=== PATIENT | female | born 1975 | race Caucasian/White ===

== ENCOUNTER → 2019-04-25 09:41 | Outpatient (CLI) | payer OTHER, SELFPAY ==
[2019-04-25 12:28] LABS: Hematocrit 45.3 % (37-47); Hemoglobin 14.8 g/dL (12.0-15.0); Mean Corp Hgb Conc 32.7 g/dL (32-36); Mean Corpuscular Hgb 33.3 pg (27.0-32.0); Mean Corpuscular Volume 101.8 fL (81-99); Mean Platelet Vol. 9.5 fl (6.2-12.0); Platelet Count 251 K/mm3 (150-450); RBC Distribution Width CV 12.5 % (11.6-14.6); RBC Distribution Width SD 47.7 fl (35.1-43.9); Red Blood Count 4.45 M/mm3 (4.2-5.4); White Blood Count 8.7 K/mm3 (4.4-11.0)
[2019-04-25 13:04] LABS: Vitamin D,25 Hydroxy 71.4 ng/mL (29.95-100.01)
[2019-04-25 13:09] LABS: AST(SGOT) 13 U/L (15-37); Alanine Aminotransfer ALT/SGPT 25 U/L (13-56); Albumin, Serum 3.9 g/dL (3.2-5.0); Alkaline Phosphatase 67 U/L (45-117); BUN 13 mg/dL (7-18); Bilirubin, Direct 0.14 mg/dL (0.00-0.30); Creatinine, Serum 0.82 mg/dL (0.55-1.02); EST Glomerular Filtration Rate 80 mL/min (>60); Est Glom Filt Rate - Afr Amer 97 mL/min (>60); Free T3 2.5 pg/mL (2.18-3.98); Globulin 3.5 g/dL (2.2-4.2); Protein, Total 7.4 g/dL (6.4-8.2); T4 Free Direct 0.82 ng/dL (0.76-1.46); Thyroid Stim Hormone (TSH) 1.23 uIU/mL (0.358-3.74)
== END ==
DX: E03.9 Hypothyroidism, unspecified (principal); K51.30 Ulcerative (chronic) rectosigmoiditis without complications
CPT/HCPCS: 36415; 80076; 82306; 82565; 84439; 84443; 84481; 84520; 85027

== ENCOUNTER 2019-05-10 11:30 | Outpatient (RCR) | payer SELFPAY ==
--- NOTE | 2019-04-25 13:20 | HP.PTEVAL ---
Patient's Visit Information KYLEE NAVARRO is a 43 year old F referred to Physical Therapy by Self Referred with a diagnosis of .. Date of Evaluation: 04/25/19 Physical Therapist: Janice Mccormick, PT, Cert MDT - Visit Plan Frequency: 1x/Week Duration: 1 Week Plan: POSTURE CORRECTION/STRENGTHENING, INSTRUCTION IN APPROPRIATE BODY MECHANICS AND ACTIVITY MODIFICATIONS. MEHUL UE ROM, STRETCHING AND STRENGTHENING. HEP INSTRUCTION. SPECIFICALLY CONSIDER HEP INST FOR SELF STRETCHING OF SCALENES, UPPER TRAPS, LEVATOR SCAPULAE, PEC VIVI AND PEC MINOR. CONSIDER STRENGTHENING OF DEEP NECK FLEXORS, MIDDLE TRAP, LOWER TRAP AND SERRATUS TAKING CURRENT EX PROGRAM INTO CONSIDERATION. CONSIDER DEEP NECK FLEXOR LIFT, PRONE W'S, UE WALL SLIDES, PRONE ROWS, AND UE BAND WALL WALKS. 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 SIT STAND DESK. NOT STRICKLY SITTING. SOME LIFTING, BENDING, TWISTING. Disability: NO. Present symptoms: HEADACHES, TIGHTNESS ACROSS NECK, RIGHT FOREARM TIGHTNESS. MEHUL UE DISCOMFORT RIGHT > LEFT. UE SX'S COME AND GO. NUMBNESS DIGITS 2 AND 3 RIGHT HAND (CONSTANT) NO LEFT HAND SX'S. Present since: SEPTEMBER 2015. Pain Scale: Worst - 2/10 (HEAD AND NECK) Least - 0/10. Currently: 0/10. Commenced as a result of: NO APPARENT REASON. Symptoms at onset: RIGHT NECK/UE SEVERE PAIN. Worse: WORKING AT A DESK, POOR POSTURE, SOMETIMES LIFTING, SOMETIMES WORKOUTS. Better: HEATING PAD, MVMT, MUSCLE RELAXER NEEDED. Disturbed sleep: NO. Previous history/Previous treatment: PHYSICAL THERAPY - TRACTION - NE, MOE PT. JO - NE. DRY NEEDLING ([facility] PT) - ON GOING - DOESN'T RESOLVE IT BUT IT HELPS RELIEVE. ORTHO CONSULT- SURGERY RECOMMENDED BUT DECLINED. MULTIPLE PT'S FOR EXERCISE, LASER AND OTHER. DRASTIC DIET CHANGES. Dizziness: NO. Tinnitis: NO. Nausea: NO. Shortness of Breath: NO. Difficulty Swollowing: NO. Gait: NORMAL. Accidents: NO. Unexplained weight loss: NO. Imaging: C67 HNP - MRI 2016 - MOST RECENT. PMH/Recent major surgery: UNREMARKABLE. OTHER: RECENTLY RELOCATED FROM [facility] TO [place]. - Objective Sitting Posture/Standing Posture: FAIR. MILD FH AND RS'S. Other Observations: INDEP GAIT AND TRANSFERS. Motor deficit: MEHUL UE'S GROSSLY 5/5 WITH MMT'ING. Sensory deficit: DECREASED RIGHT FOREARM AND DIGIT (2&3) LIGHT TOUCH SENSATION COMPARED TO LEFT. ROM deficit: MEHUL UE ROM WFL. Cervical Mvmt Loss: CERVICAL ROM WFL ALL PLANES WITH MIN MVMT LOSS INTO RETRACTION. PATIENT WITHOUT C/O INCREASED PAIN WITH CERVCIAL AND UE TESTING ALL PLANES. Postural strength: GOOD. OTHER: REVIEWED CURRENT HEP. PATIENT APPEARS TO HAVE DECREASED COMPREHENSIVE HEP KNOWLEGE IN TERMS OF SOME SPECIFIC EX'S FOR NECK AND POSTURAL STRETCHING AND STENGTHENING ALONG WITH DECREASED KNOWLEDGE OF APPROPRIATE INTENSITY AND FREQUENCY. DISCUSSED CURRENT PERSONAL TRAINING SERVICES AVAILABLE HERE AT [facility]. - Goals Goal 1:: DECREASE C/O HEAD, NECK AND UE SX'S. Goal Time Frame: 4-6 Weeks Goal 2:: IMPROVE WORK AND RECREATIONAL FUNCTION Goal Time Frame: 4-6 Weeks Goal 3:: INSTRUCT IN PROPHYLAXIS Goal Time Frame: 4-6 Weeks - Rehabilitation Potential Physical Therapy Diagnosis: H/O C67 HNP WITH RIGHT UE SX'S R>L. Rehabilitation Potential: Good - Anticipated Interventions Patient/Client Instruction: Educate patient on: Condition, Plan of Care, Risk Factors, Benefits of Fitness Program For the Purpose of:: To improve self management Therapeutic Exercise to Include: Strength training, Endurance training, Body mechanics, Postural training, Flexibilty training, Moe Exercises, Scapular Strength/Stabilization For the Purpose of:: To improve muscle performance and motor function, To increase tolerance to activity/condition/position, To improve ability of physical actions for home/community/work/leisure Thank you for the opportunity to evaluate your patient. For Medicare and Medicare HMO plans, please review the plan of care and approve it. It will need to be FAXED BACK to us at [phone] for Medicare purposes. For Medicare only, by signing this I certify the plan of care. Please let me know if there are questions or concerns regarding this plan of care. Physician Signature: Date:
--- NOTE | 2019-06-19 17:46 | HP.PTDCSUM ---
HP - PT D/C Summary It has been my pleasure to treat KYLEE NAVARRO under orders from Self Referred, for the diagnosis of . for a total of 2 visit(s). Discharge Date: Please see the following information for a summary of their discharge status. - Subjective Subjective: HER RIGHT ARM AND NECK IS FEELING SUPER TIGHT AND GETTING HEADACHES. PATIENT REPORTS SHE HAS BEEN MORE STRESSED LATELY AND SHE HASN'T BEEN ACTIVE. HASN'T BEEN EXERCISING MUCH ON HER OWN. HAS BEEN A COUPLE MONTHS SINCE DOING DRY NEEDLING. - Pain NECK Pain Intensity (Out of 10): Unrated RIGHT UE Pain Intensity (Out of 10): Unrated - Objective Objective/Function: ONLY A FEW REPETITIONS OF EACH EX PERFORMED UNTIL PROPER TECHNIQUE EVIDENT WITH MOST EX'S. PATIENT TOLERATED ALL WELL. - Goals Goal 1:: DECREASE C/O HEAD, NECK AND UE SX'S. Goal 2:: IMPROVE WORK AND RECREATIONAL FUNCTION Goal 3:: INSTRUCT IN PROPHYLAXIS Goal Progress: Progressing - Plan Plan: PATIENT PLANS TO WORK WITH [employer] AT [facility]. WILL HOLD CHART FOR FURTHER PHYSICAL THERAPY IF NEEDED. THIS PT HAS ALREADY HAD ONE CASE CONFERENCE WITH [employer]. - D/C Information If there are questions or concerns regarding this patient's physical therapy, please feel free to call me at [phone]. Thank you for the referral of this patient. Sincerely, Janice Mccormick, PT, Cert MDT
== END 2019-05-10 19:00 | disposition home or self-care (01) ==
LOC: PT 11:30
DX: R69 Illness, unspecified (principal)
CPT/HCPCS: 97161; 97530

== ENCOUNTER → 2019-07-19 07:56 | Outpatient (CLI) | payer OTHER, SELFPAY ==
[2019-07-19 08:47] LABS: Hematocrit 41.2 % (37-47); Hemoglobin 13.4 g/dL (12.0-15.0); Mean Corp Hgb Conc 32.5 g/dL (32-36); Mean Corpuscular Hgb 33.3 pg (27.0-32.0); Mean Corpuscular Volume 102.2 fL (81-99); Mean Platelet Vol. 9.2 fl (6.2-12.0); Platelet Count 236 K/mm3 (150-450); RBC Distribution Width CV 12.6 % (11.6-14.6); RBC Distribution Width SD 47.7 fl (35.1-43.9); Red Blood Count 4.03 M/mm3 (4.2-5.4); White Blood Count 8.3 K/mm3 (4.4-11.0)
[2019-07-19 09:08] LABS: Ferritin 38 ng/mL (8-252); Free T3 2.3 pg/mL (2.18-3.98); T4 Free Direct 0.84 ng/dL (0.76-1.46); Thyroid Stim Hormone (TSH) 3.05 uIU/mL (0.358-3.74)
[2019-07-22 11:02] LABS: Vitamin B12 1277 pg/mL (211-911); Vitamin D,25 Hydroxy 71.3 ng/mL
== END ==
DX: E03.9 Hypothyroidism, unspecified (principal); E55.9 Vitamin D deficiency, unspecified; E53.8 Deficiency of other specified B group vitamins
CPT/HCPCS: 36415; 82306; 82607; 82728; 84439; 84443; 84481; 85027

== ENCOUNTER → 2019-10-17 08:14 | Outpatient (CLI) | payer OTHER, SELFPAY ==
[2019-10-17 09:37] LABS: Free T3 2.3 pg/mL (2.18-3.98); T4 Free Direct 0.86 ng/dL (0.76-1.46); Thyroid Stim Hormone (TSH) 2.43 uIU/mL (0.358-3.74)
== END ==
DX: E03.9 Hypothyroidism, unspecified (principal)
CPT/HCPCS: 36415; 84439; 84443; 84481

== ENCOUNTER → 2020-01-29 08:06 | Outpatient (CLI) | payer OTHER, SELFPAY ==
[2020-01-29 08:22] LABS: Absolute Lymphocyte Count 1.71 X10^3/uL (0.83-4.51); Absolute Neutrophil Count 6.7 X10^3/uL (2.0-7.7); Basophil# 0.03 X10^3/uL; Basophil% 0.3 % (0-1); Eosinophils% 1.1 % (0-5); Hematocrit 41.8 % (37-47); Hemoglobin 13.6 g/dL (12.0-15.0); Lymphocyte # 1.71 X10^3/ul (4.0); Lymphocyte % 18.9 % (19-41); Mean Corp Hgb Conc 32.5 g/dL (32-36); Mean Corpuscular Volume 101.5 fL (81-99); Mean Platelet Vol. 8.9 fl (6.2-12.0); Monocyte# 0.49 X10^3/uL; Monocyte% 5.4 % (0-10); NRBC Flagged by Analyzer 0 % (0-5); Neutrophil # 6.67 X10^3/uL (2.7-7.7); Neutrophil % 73.9 % (47-70); Platelet Count 234 K/mm3 (150-450); RBC Distribution Width CV 12.8 % (11.6-14.6); RBC Distribution Width SD 47.7 fl (35.1-43.9); Red Blood Count 4.12 M/mm3 (4.2-5.4)
[2020-01-29 08:51] LABS: ALB/GLOB Ratio 1.1 RATIO (0.9-2.4); AST(SGOT) 16 U/L (15-37); Alanine Aminotransfer ALT/SGPT 30 U/L (13-56); Albumin, Serum 3.7 g/dL (3.2-5.0); Alkaline Phosphatase 58 U/L (45-117); Anion Gap 4 (5-15); BUN 7 mg/dL (7-18); BUN/Creat Ratio 9.7 RATIO (10-20); Calcium,Total 9.3 mg/dL (8.5-10.1); Chloride 106 mmol/L (98-107); Creatinine, Serum 0.72 mg/dL (0.55-1.02); EST Glomerular Filtration Rate 92 mL/min (>60); Est Glom Filt Rate - Afr Amer 112 mL/min (>60); Ferritin 40 ng/mL (8-252); Free T3 2.1 pg/mL (2.18-3.98); Globulin 3.5 g/dL (2.2-4.2); Glucose 84 mg/dL (74-106); Potassium 3.9 mmol/L (3.5-5.1); Protein, Total 7.2 g/dL (6.4-8.2); Sodium Level 139 mmol/L (136-145); T4 Free Direct 0.78 ng/dL (0.76-1.46); Thyroid Stim Hormone (TSH) 1.46 uIU/mL (0.358-3.74)
[2020-01-29 11:06] LABS: Vitamin B12 952 pg/mL (211-911); Vitamin D,25 Hydroxy 76.7 ng/mL
== END ==
DX: E03.9 Hypothyroidism, unspecified (principal); E61.1 Iron deficiency; E55.9 Vitamin D deficiency, unspecified; E53.8 Deficiency of other specified B group vitamins
CPT/HCPCS: 36415; 80053; 82306; 82607; 82728; 84439; 84443; 84481; 85025

== ENCOUNTER → 2020-05-29 07:54 | Outpatient (CLI) | payer OTHER, SELFPAY ==
[2020-05-29 08:13] LABS: Absolute Lymphocyte Count 1.92 X10^3/uL (0.83-4.51); Absolute Neutrophil Count 4.9 X10^3/uL (2.0-7.7); Basophil# 0.03 X10^3/uL; Basophil% 0.4 % (0-1); Eosinophil# 0.08 X10^3/uL; Eosinophils% 1.1 % (0-5); Hematocrit 42.2 % (37-47); Hemoglobin 13.6 g/dL (12.0-15.0); Lymphocyte # 1.92 X10^3/ul (4.0); Lymphocyte % 26.2 % (19-41); Mean Corp Hgb Conc 32.2 g/dL (32-36); Mean Corpuscular Hgb 32.5 pg (27.0-32.0); Monocyte# 0.39 X10^3/uL; Monocyte% 5.3 % (0-10); NRBC Flagged by Analyzer 0 % (0-5); Neutrophil # 4.89 X10^3/uL (2.7-7.7); Neutrophil % 66.9 % (47-70); Platelet Count 236 K/mm3 (150-450); RBC Distribution Width CV 12.8 % (11.6-14.6); Red Blood Count 4.18 M/mm3 (4.2-5.4); White Blood Count 7.3 K/mm3 (4.4-11.0)
[2020-05-29 08:47] LABS: Ferritin 42 ng/mL (8-252); Free T3 2.4 pg/mL (2.18-3.98); T4 Free Direct 1.11 ng/dL (0.76-1.46); Thyroid Stim Hormone (TSH) 0.33 uIU/mL (0.358-3.74)
== END ==
DX: E03.9 Hypothyroidism, unspecified (principal); E61.1 Iron deficiency
CPT/HCPCS: 36415; 82728; 84439; 84443; 84481; 85025

== ENCOUNTER → 2020-08-18 07:51 | Outpatient (CLI) | payer OTHER, SELFPAY ==
[2020-08-18 08:42] LABS: Anion Gap 7 (5-15); BUN 9 mg/dL (7-18); BUN/Creat Ratio 11.4 RATIO (10-20); Calcium,Total 9.2 mg/dL (8.5-10.1); Chloride 102 mmol/L (98-107); Creatinine, Serum 0.79 mg/dL (0.55-1.02); EST Glomerular Filtration Rate 83 mL/min (>60); Est Glom Filt Rate - Afr Amer 101 mL/min (>60); Ferritin 48 ng/mL (8-252); Free T3 1.8 pg/mL (2.18-3.98); Glucose 92 mg/dL (74-106); Sodium Level 136 mmol/L (136-145); T4 Free Direct 1.04 ng/dL (0.76-1.46)
[2020-08-18 08:48] LABS: Vitamin D,25 Hydroxy 76.3 ng/mL
[2020-08-18 11:22] LABS: Vitamin B12 > 2000 pg/mL (211-911)
[2020-08-18 16:06] LABS: Xtra Tube EP Lab EXTRA TUBE
== END ==
DX: E53.8 Deficiency of other specified B group vitamins (principal); E55.9 Vitamin D deficiency, unspecified; E03.9 Hypothyroidism, unspecified; E61.1 Iron deficiency
CPT/HCPCS: 36415; 80048; 82306; 82607; 82728; 84439; 84443; 84481

== ENCOUNTER → 2021-02-20 09:32 | Outpatient (CLI) | payer OTHER, SELFPAY ==
[2021-02-20 10:55] LABS: Absolute Lymphocyte Count 1.91 X10^3/uL (0.83-4.51); Absolute Neutrophil Count 5.8 X10^3/uL (2.0-7.7); Basophil# 0.02 X10^3/uL; Basophil% 0.2 % (0-1); Eosinophil# 0.07 X10^3/uL; Eosinophils% 0.9 % (0-5); Hematocrit 45.7 % (37-47); Hemoglobin 14.7 g/dL (12.0-15.0); Lymphocyte # 1.91 X10^3/ul (0.83-4.51); Lymphocyte % 23.2 % (19-41); Mean Corp Hgb Conc 32.2 g/dL (32-36); Mean Corpuscular Hgb 33.1 pg (27.0-32.0); Mean Corpuscular Volume 102.9 fL (81-99); Mean Platelet Vol. 9.3 fl (6.2-12.0); Monocyte# 0.43 X10^3/uL; Monocyte% 5.2 % (0-10); NRBC Flagged by Analyzer 0 % (0-5); Neutrophil # 5.76 X10^3/uL (2.7-7.7); Neutrophil % 70.1 % (47-70); Platelet Count 268 K/mm3 (150-450); RBC Distribution Width CV 13.1 % (11.6-14.6); RBC Distribution Width SD 49.6 fl (35.1-43.9); Red Blood Count 4.44 M/mm3 (4.2-5.4); White Blood Count 8.2 K/mm3 (4.4-11.0)
[2021-02-20 11:48] LABS: AST(SGOT) 16 U/L (15-37); Alanine Aminotransfer ALT/SGPT 23 U/L (13-56); Albumin, Serum 3.6 g/dL (3.2-5.0); Alkaline Phosphatase 67 U/L (45-117); Anion Gap 6 (5-15); BUN 8 mg/dL (7-18); BUN/Creat Ratio 10.7 RATIO (10-20); Calcium,Total 9.2 mg/dL (8.5-10.1); Chloride 105 mmol/L (98-107); Cholesterol 170 mg/dL (200); Creatinine, Serum 0.75 mg/dL (0.55-1.02); EST Glomerular Filtration Rate 89 mL/min (>60); Est Glom Filt Rate - Afr Amer 107 mL/min (>60); Ferritin 80 ng/mL (8-252); Free T3 3.7 pg/mL (2.18-3.98); Globulin 3.6 g/dL (2.2-4.2); Glucose 95 mg/dL (74-106); High Density Lipoprotein 74 mg/dL; Protein, Total 7.2 g/dL (6.4-8.2); Sodium Level 139 mmol/L (136-145); T4 Free Direct 0.85 ng/dL (0.76-1.46); Thyroid Stim Hormone (TSH) 1.71 uIU/mL (0.358-3.74); Triglycerides 61 mg/dL; Very Low Density Lipoprotein 12 mg/dL (5-40)
[2021-02-22 11:15] LABS: Vitamin B12 1440 pg/mL (211-911); Vitamin D,25 Hydroxy 73.9 ng/mL
[2021-02-24 13:22] LABS: T3 Reverse 13.5 ng/dL (9.2-24.1)
== END ==
DX: E03.9 Hypothyroidism, unspecified (principal); E55.9 Vitamin D deficiency, unspecified; E53.8 Deficiency of other specified B group vitamins; E61.1 Iron deficiency; R53.83 Other fatigue
CPT/HCPCS: 36415; 80053; 80061; 82306; 82607; 82728; 84439; 84443; 84481; 84482; 85025

== ENCOUNTER → 2021-03-30 | Outpatient (CLI) | payer OTHER, SELFPAY ==
[2021-04-07 14:23] LABS: HPV APTIMA, High Risk Negative (Negative)
== END | disposition home or self-care (01) ==
LOC: LABSPEC 13:37
PROVIDERS: Visit Provider Student in an Organized Health Care Education/Training Program
DX: Z12.4 Encounter for screening for malignant neoplasm of cervix (principal)
CPT/HCPCS: 87624; 88175; G0145

== ENCOUNTER → 2021-08-11 08:10 | Outpatient (CLI) | payer OTHER, SELFPAY ==
[2021-08-11 08:35] LABS: Absolute Lymphocyte Count 1.86 X10^3/uL (0.83-4.51); Absolute Neutrophil Count 4.5 X10^3/uL (2.0-7.7); Basophil# 0.03 X10^3/uL; Basophil% 0.4 % (0-1); Eosinophils% 1.4 % (0-5); Hematocrit 39.8 % (37-47); Hemoglobin 13.1 g/dL (12.0-15.0); Lymphocyte # 1.86 X10^3/ul (0.83-4.51); Lymphocyte % 26.6 % (19-41); Mean Corp Hgb Conc 32.9 g/dL (32-36); Mean Corpuscular Hgb 33.8 pg (27.0-32.0); Mean Corpuscular Volume 102.6 fL (81-99); Mean Platelet Vol. 8.5 fl (6.2-12.0); Monocyte# 0.46 X10^3/uL; Monocyte% 6.6 % (0-10); NRBC Flagged by Analyzer 0 % (0-5); Neutrophil # 4.51 X10^3/uL (2.7-7.7); Neutrophil % 64.6 % (47-70); Platelet Count 232 K/mm3 (150-450); RBC Distribution Width CV 12.6 % (11.6-14.6); RBC Distribution Width SD 47.6 fl (35.1-43.9); Red Blood Count 3.88 M/mm3 (4.2-5.4)
[2021-08-11 09:02] LABS: ALB/GLOB Ratio 1.1 RATIO (0.9-2.4); AST(SGOT) 14 U/L (15-37); Alanine Aminotransfer ALT/SGPT 25 U/L (13-56); Albumin, Serum 3.6 g/dL (3.2-5.0); Alkaline Phosphatase 54 U/L (45-117); Anion Gap 2 (5-15); BUN 14 mg/dL (7-18); BUN/Creat Ratio 15.2 RATIO (10-20); Calcium,Total 9.1 mg/dL (8.5-10.1); Chloride 106 mmol/L (98-107); Creatinine, Serum 0.92 mg/dL (0.55-1.02); EST Glomerular Filtration Rate 70 mL/min (>60); Est Glom Filt Rate - Afr Amer 84 mL/min (>60); Ferritin 74 ng/mL (8-252); Free T3 3.4 pg/mL (2.18-3.98); Globulin 3.4 g/dL (2.2-4.2); Glucose 92 mg/dL (74-106); Iron 113 ug/dL (50-170); Iron Binding Capacity,Total 286 ug/dL (250-450); PERCENT IRON SATURATION 39.5 % (15.0-55.0); Sodium Level 138 mmol/L (136-145); T4 Free Direct 0.86 ng/dL (0.76-1.46)
[2021-08-11 09:28] LABS: Vitamin B12 1207 pg/mL (211-911); Vitamin D,25 Hydroxy 97.4 ng/mL
[2021-08-12 14:29] LABS: Thyroid Stim Hormone (TSH) 1.61 uIU/mL (0.358-3.74)
== END ==
DX: E55.9 Vitamin D deficiency, unspecified (principal); E03.9 Hypothyroidism, unspecified; E53.8 Deficiency of other specified B group vitamins; E61.1 Iron deficiency; R53.83 Other fatigue
CPT/HCPCS: 36415; 80053; 82306; 82607; 82728; 83540; 83550; 84439; 84443; 84481; 85025

== ENCOUNTER → 2021-11-26 | Outpatient (CLI) | payer OTHER, SELFPAY ==
[2021-11-26 09:32] LABS: Free T3 1.7 pg/mL (2.18-3.98); T4 Free Direct 0.88 ng/dL (0.76-1.46); Thyroid Stim Hormone (TSH) 2.08 uIU/mL (0.358-3.74)
== END | disposition home or self-care (01) ==
LOC: PAVLAB 08:31
DX: E03.9 Hypothyroidism, unspecified (principal)
CPT/HCPCS: 36415; 84439; 84443; 84481

== ENCOUNTER → 2022-01-05 | Outpatient (CLI) | payer OTHER, SELFPAY ==
[2022-01-05 08:52] LABS: Free T3 2.1 pg/mL (2.18-3.98); T4 Free Direct 0.84 ng/dL (0.76-1.46); Thyroid Stim Hormone (TSH) 1.42 uIU/mL (0.358-3.74)
== END | disposition home or self-care (01) ==
LOC: PAVLAB 08:09
DX: E03.9 Hypothyroidism, unspecified (principal)
CPT/HCPCS: 36415; 84439; 84443; 84481

== ENCOUNTER → 2022-02-15 | Outpatient (CLI) | payer OTHER, SELFPAY ==
[2022-02-15 08:49] LABS: Absolute Lymphocyte Count 1.95 X10^3/uL (0.83-4.51); Absolute Neutrophil Count 3.7 X10^3/uL (2.0-7.7); Basophil# 0.02 X10^3/uL; Basophil% 0.3 % (0-1); Eosinophil# 0.07 X10^3/uL; Eosinophils% 1.1 % (0-5); Hematocrit 38.4 % (37-47); Hemoglobin 12.6 g/dL (12.0-15.0); Lymphocyte # 1.95 X10^3/ul (0.83-4.51); Lymphocyte % 31.9 % (19-41); Mean Corp Hgb Conc 32.8 g/dL (32-36); Mean Corpuscular Hgb 33.6 pg (27.0-32.0); Mean Corpuscular Volume 102.4 fL (81-99); Mean Platelet Vol. 8.7 fl (6.2-12.0); Monocyte# 0.35 X10^3/uL; Monocyte% 5.7 % (0-10); NRBC Flagged by Analyzer 0 % (0-5); Neutrophil # 3.71 X10^3/uL (2.7-7.7); Neutrophil % 60.7 % (47-70); Platelet Count 206 K/mm3 (150-450); RBC Distribution Width CV 12.4 % (11.6-14.6); RBC Distribution Width SD 46.9 fl (35.1-43.9); Red Blood Count 3.75 M/mm3 (4.2-5.4); White Blood Count 6.1 K/mm3 (4.4-11.0)
[2022-02-15 09:13] LABS: ALB/GLOB Ratio 1.1 RATIO (0.9-2.4); AST(SGOT) 14 U/L (15-37); Alanine Aminotransfer ALT/SGPT 29 U/L (13-56); Albumin, Serum 3.5 g/dL (3.2-5.0); Alkaline Phosphatase 49 U/L (45-117); Anion Gap 5 (5-15); BUN 9 mg/dL (7-18); BUN/Creat Ratio 11.9 RATIO (10-20); Chloride 108 mmol/L (98-107); Creatinine, Serum 0.76 mg/dL (0.55-1.02); EST Glomerular Filtration Rate 87 mL/min (>60); Est Glom Filt Rate - Afr Amer 105 mL/min (>60); Ferritin 69 ng/mL (8-252); Free T3 2.3 pg/mL (2.18-3.98); Globulin 3.3 g/dL (2.2-4.2); Glucose 101 mg/dL (74-106); Iron 170 ug/dL (50-170); Iron Binding Capacity,Total 282 ug/dL (250-450); PERCENT IRON SATURATION 60.3 % (15.0-55.0); Potassium 3.6 mmol/L (3.5-5.1); Protein, Total 6.8 g/dL (6.4-8.2); Sodium Level 141 mmol/L (136-145); T4 Free Direct 0.92 ng/dL (0.76-1.46); Thyroid Stim Hormone (TSH) 0.58 uIU/mL (0.358-3.74)
[2022-02-15 11:36] LABS: Vitamin B12 1996 pg/mL (211-911); Vitamin D,25 Hydroxy 59.4 ng/mL
== END | disposition home or self-care (01) ==
LOC: PAVLAB 08:30
DX: E61.1 Iron deficiency (principal); E55.9 Vitamin D deficiency, unspecified; E53.8 Deficiency of other specified B group vitamins
CPT/HCPCS: 36415; 80053; 82306; 82607; 82728; 83540; 83550; 84439; 84443; 84481; 85025

== ENCOUNTER → 2022-08-12 | Outpatient (CLI) | payer OTHER, SELFPAY ==
[2022-08-12 08:47] LABS: Absolute Lymphocyte Count 1.58 X10^3/uL (0.83-4.51); Absolute Neutrophil Count 6.4 X10^3/uL (2.0-7.7); Basophil# 0.02 X10^3/uL; Basophil% 0.2 % (0-1); Eosinophil# 0.07 X10^3/uL; Eosinophils% 0.8 % (0-5); Hematocrit 39.9 % (37-47); Lymphocyte # 1.58 X10^3/ul (0.83-4.51); Lymphocyte % 18.7 % (19-41); Mean Corp Hgb Conc 32.6 g/dL (32-36); Mean Corpuscular Hgb 33.2 pg (27.0-32.0); Mean Platelet Vol. 9.2 fl (6.2-12.0); Monocyte% 4.7 % (0-10); NRBC Flagged by Analyzer 0 % (0-5); Neutrophil # 6.37 X10^3/uL (2.7-7.7); Neutrophil % 75.4 % (47-70); Platelet Count 213 K/mm3 (150-450); RBC Distribution Width CV 12.3 % (11.6-14.6); RBC Distribution Width SD 46.1 fl (35.1-43.9); Red Blood Count 3.91 M/mm3 (4.2-5.4); White Blood Count 8.5 K/mm3 (4.4-11.0)
[2022-08-12 09:10] LABS: Vitamin B12 1493 pg/mL (211-911); Vitamin D,25 Hydroxy 56.2 ng/mL
[2022-08-12 09:17] LABS: ALB/GLOB Ratio 1.1 RATIO (0.9-2.4); AST(SGOT) 16 U/L (15-37); Alanine Aminotransfer ALT/SGPT 30 U/L (13-56); Albumin, Serum 3.6 g/dL (3.2-5.0); Alkaline Phosphatase 53 U/L (45-117); Anion Gap 8 (5-15); BUN 15 mg/dL (7-18); BUN/Creat Ratio 18.6 RATIO (10-20); Chloride 106 mmol/L (98-107); Creatinine, Serum 0.81 mg/dL (0.55-1.02); EST Glomerular Filtration Rate 81 mL/min (>60); Est Glom Filt Rate - Afr Amer 98 mL/min (>60); Ferritin 85 ng/mL (8-252); Globulin 3.3 g/dL (2.2-4.2); Glucose 81 mg/dL (74-106); Protein, Total 6.9 g/dL (6.4-8.2); Sodium Level 141 mmol/L (136-145); T4 Free Direct 0.92 ng/dL (0.76-1.46); Thyroid Stim Hormone (TSH) 0.09 uIU/mL (0.358-3.74)
== END | disposition home or self-care (01) ==
LOC: PAVLAB 08:24
DX: E61.1 Iron deficiency (principal); E03.9 Hypothyroidism, unspecified; R53.83 Other fatigue; E55.9 Vitamin D deficiency, unspecified; E53.8 Deficiency of other specified B group vitamins
CPT/HCPCS: 36415; 80053; 82306; 82607; 82728; 83036; 84439; 84443; 84481; 85025

== ENCOUNTER → 2022-10-28 | Outpatient (CLI) | payer OTHER, SELFPAY ==
[2022-10-28 08:57] LABS: Free T3 1.8 pg/mL (2.18-3.98); T4 Free Direct 0.85 ng/dL (0.76-1.46); Thyroid Stim Hormone (TSH) 0.64 uIU/mL (0.358-3.74)
== END | disposition home or self-care (01) ==
LOC: PAVLAB 08:09
DX: E03.9 Hypothyroidism, unspecified (principal)
CPT/HCPCS: 36415; 84439; 84443; 84481

== ENCOUNTER → 2023-02-24 | Outpatient (CLI) | payer BC, SELFPAY ==
[2023-02-24 08:26] LABS: Absolute Lymphocyte Count 1.96 X10^3/uL (0.83-4.51); Absolute Neutrophil Count 5.2 X10^3/uL (2.0-7.7); Basophil# 0.04 X10^3/uL; Basophil% 0.5 % (0-1); Eosinophils% 1.3 % (0-5); Hematocrit 39.7 % (37-47); Hemoglobin 12.8 g/dL (12.0-15.0); Lymphocyte # 1.96 X10^3/ul (0.83-4.51); Lymphocyte % 25.7 % (19-41); Mean Corp Hgb Conc 32.2 g/dL (32-36); Mean Corpuscular Hgb 33.4 pg (27.0-32.0); Mean Corpuscular Volume 103.7 fL (81-99); Mean Platelet Vol. 9.3 fl (6.2-12.0); Monocyte# 0.36 X10^3/uL; Monocyte% 4.7 % (0-10); NRBC Flagged by Analyzer 0 % (0-5); Neutrophil # 5.16 X10^3/uL (2.7-7.7); Neutrophil % 67.5 % (47-70); Platelet Count 217 K/mm3 (150-450); RBC Distribution Width CV 12.8 % (11.6-14.6); RBC Distribution Width SD 48.8 fl (35.1-43.9); Red Blood Count 3.83 M/mm3 (4.2-5.4); White Blood Count 7.6 K/mm3 (4.4-11.0)
[2023-02-24 08:46] LABS: Vitamin B12 996 pg/mL (211-911); Vitamin D,25 Hydroxy 52.8 ng/mL
[2023-02-24 08:54] LABS: Hemoglobin A1c 4.8 % (3.8-5.6)
[2023-02-24 09:03] LABS: Ferritin 62 ng/mL (8-252); Free T3 1.9 pg/mL (2.18-3.98); T4 Free Direct 0.74 ng/dL (0.76-1.46); Thyroid Stim Hormone (TSH) 2.01 uIU/mL (0.358-3.74)
== END | disposition home or self-care (01) ==
DX: E03.9 Hypothyroidism, unspecified (principal); E53.8 Deficiency of other specified B group vitamins; E55.9 Vitamin D deficiency, unspecified; E61.1 Iron deficiency
CPT/HCPCS: 36415; 82306; 82607; 82728; 83036; 84439; 84443; 84481; 85025

== ENCOUNTER → 2023-06-28 | Outpatient (CLI) | payer BC, SELFPAY ==
[2023-06-28 09:15] LABS: Absolute Lymphocyte Count 1.94 X10^3/uL (0.83-4.51); Absolute Neutrophil Count 4.4 X10^3/uL (2.0-7.7); Basophil# 0.02 X10^3/uL; Basophil% 0.3 % (0-1); Eosinophil# 0.05 X10^3/uL; Eosinophils% 0.7 % (0-5); Hematocrit 39.5 % (37-47); Hemoglobin 13.3 g/dL (12.0-15.0); Lymphocyte # 1.94 X10^3/ul (0.83-4.51); Lymphocyte % 28.4 % (19-41); Mean Corp Hgb Conc 33.7 g/dL (32-36); Mean Corpuscular Hgb 33.9 pg (27.0-32.0); Mean Corpuscular Volume 100.8 fL (81-99); Monocyte# 0.41 X10^3/uL; NRBC Flagged by Analyzer 0 % (0-5); Neutrophil # 4.41 X10^3/uL (2.7-7.7); Neutrophil % 64.5 % (47-70); Platelet Count 239 K/mm3 (150-450); RBC Distribution Width CV 12.8 % (11.6-14.6); RBC Distribution Width SD 47.4 fl (35.1-43.9); Red Blood Count 3.92 M/mm3 (4.2-5.4); White Blood Count 6.8 K/mm3 (4.4-11.0)
[2023-06-28 10:09] LABS: Vitamin D,25 Hydroxy 45.9 ng/mL
[2023-06-28 10:11] LABS: Ferritin 79 ng/mL (8-252); Free T3 1.8 pg/mL (2.18-3.98); T4 Free Direct 0.75 ng/dL (0.76-1.46); Thyroid Stim Hormone (TSH) 0.59 uIU/mL (0.358-3.74)
== END | disposition home or self-care (01) ==
DX: E03.9 Hypothyroidism, unspecified (principal); E55.9 Vitamin D deficiency, unspecified; E61.1 Iron deficiency
CPT/HCPCS: 36415; 82306; 82728; 84439; 84443; 84481; 85025

== ENCOUNTER → 2024-02-21 | Outpatient (CLI) | payer BC, SELFPAY ==
[2024-02-21 08:03] LABS: Absolute Lymphocyte Count 1.98 X10^3/uL (0.83-4.51); Absolute Neutrophil Count 3.8 X10^3/uL (2.0-7.7); Basophil# 0.03 X10^3/uL; Basophil% 0.5 % (0-1); Eosinophil# 0.09 X10^3/uL; Eosinophils% 1.4 % (0-5); Hematocrit 41.9 % (37-47); Hemoglobin 14.2 g/dL (12.0-15.0); Lymphocyte # 1.98 X10^3/ul (0.83-4.51); Lymphocyte % 31.4 % (19-41); Mean Corp Hgb Conc 33.9 g/dL (32-36); Mean Corpuscular Hgb 33.6 pg (27.0-32.0); Mean Corpuscular Volume 99.3 fL (81-99); Mean Platelet Vol. 9.4 fl (6.2-12.0); Monocyte# 0.35 X10^3/uL; Monocyte% 5.5 % (0-10); NRBC Flagged by Analyzer 0 % (0-5); Neutrophil # 3.84 X10^3/uL (2.7-7.7); Neutrophil % 60.9 % (47-70); Platelet Count 262 K/mm3 (150-450); RBC Distribution Width CV 11.9 % (11.6-14.6); RBC Distribution Width SD 43.6 fl (35.1-43.9); Red Blood Count 4.22 M/mm3 (4.2-5.4); White Blood Count 6.3 K/mm3 (4.4-11.0)
[2024-02-21 08:33] LABS: ALB/GLOB Ratio 1.1 RATIO (0.9-2.4); AST(SGOT) 19 U/L (15-37); Alanine Aminotransfer ALT/SGPT 27 U/L (13-56); Albumin, Serum 3.9 g/dL (3.2-5.0); Alkaline Phosphatase 64 U/L (45-117); Anion Gap 5 (5-15); BUN 9 mg/dL (7-18); BUN/Creat Ratio 12.7 RATIO (10-20); Calcium,Total 9.5 mg/dL (8.5-10.1); Chloride 109 mmol/L (98-107); Creatinine, Serum 0.71 mg/dL (0.55-1.02); EST Glomerular Filtration Rate 93 mL/min (>60); Est Glom Filt Rate - Afr Amer 112 mL/min (>60); Ferritin 88 ng/mL (8-252); Free T3 2.1 pg/mL (2.18-3.98); Globulin 3.5 g/dL (2.2-4.2); Glucose 91 mg/dL (74-106); Potassium 4.2 mmol/L (3.5-5.1); Protein, Total 7.4 g/dL (6.4-8.2); Sodium Level 141 mmol/L (136-145); T4 Free Direct 0.92 ng/dL (0.76-1.46); Thyroid Stim Hormone (TSH) 0.396 uIU/mL (0.358-3.740)
== END | disposition home or self-care (01) ==
PROVIDERS: Referring Provider Internal Medicine Endocrinology, Diabetes & Metabolism; Visit Provider Internal Medicine Endocrinology, Diabetes & Metabolism
DX: E03.9 Hypothyroidism, unspecified (principal); R53.83 Other fatigue; E55.9 Vitamin D deficiency, unspecified; E61.1 Iron deficiency
CPT/HCPCS: 36415; 80053; 82306; 82728; 84439; 84443; 84481; 85025

== ENCOUNTER → 2024-09-10 | Outpatient (CLI) | payer BC, SELFPAY ==
[2024-09-10 08:55] LABS: Absolute Lymphocyte Count 2.01 X10^3/uL (0.83-4.51); Absolute Neutrophil Count 5.5 X10^3/uL (2.0-7.7); Basophil# 0.03 X10^3/uL; Basophil% 0.4 % (0-1); Eosinophil# 0.07 X10^3/uL; Eosinophils% 0.9 % (0-5); Hematocrit 42.5 % (37-47); Hemoglobin 14.7 g/dL (12.0-15.0); Lymphocyte # 2.01 X10^3/ul (0.83-4.51); Lymphocyte % 24.9 % (19-41); Mean Corp Hgb Conc 34.6 g/dL (32-36); Mean Corpuscular Hgb 33.6 pg (27.0-32.0); Mean Corpuscular Volume 97.3 fL (81-99); Mean Platelet Vol. 9.2 fl (6.2-12.0); Monocyte# 0.43 X10^3/uL; Monocyte% 5.3 % (0-10); NRBC Flagged by Analyzer 0 % (0-5); Platelet Count 260 K/mm3 (150-450); RBC Distribution Width CV 12.3 % (11.6-14.6); RBC Distribution Width SD 44.4 fl (35.1-43.9); Red Blood Count 4.37 M/mm3 (4.2-5.4); White Blood Count 8.1 K/mm3 (4.4-11.0)
[2024-09-10 09:31] LABS: ALB/GLOB Ratio 1.6 RATIO (0.9-2.4); AST(SGOT) 18 U/L (<=31); Alanine Aminotransfer ALT/SGPT 19 U/L (<=34); Albumin, Serum 4.2 g/dL (3.5-5.0); Alkaline Phosphatase 53 U/L (35-104); Anion Gap 12 (5-15); BUN 11 mg/dL (4-19); BUN/Creat Ratio 15.4 RATIO (10-20); Calcium,Total 9.3 mg/dL (7.6-11.0); Chloride 104 mmol/L (98-108); Creatinine, Serum 0.71 mg/dL (0.70-1.20); EST Glomerular Filtration Rate 104 (>60); Ferritin 103 ng/mL (22-378); Free T3 2.3 pg/mL (2.18-3.98); Globulin 2.7 g/dL (2.2-4.2); Glucose 97 mg/dL (70-99); Potassium 4.1 mmol/L (3.3-5.1); Protein, Total 6.9 g/dL (5.9-8.4); Sodium Level 138 mmol/L (133-145); Thyroid Stim Hormone (TSH) 0.498 uIU/mL (0.300-4.200); Total Bilirubin 0.58 mg/dL (0.00-1.30); Vitamin B12 1155 pg/mL (180-914); Vitamin D,25 Hydroxy 76.6 ng/mL (30-100)
== END | disposition home or self-care (01) ==
DX: E03.9 Hypothyroidism, unspecified (principal); E55.9 Vitamin D deficiency, unspecified; E66.1 Drug-induced obesity; R79.9 Abnormal finding of blood chemistry, unspecified
CPT/HCPCS: 36415; 80053; 82306; 82607; 82728; 84439; 84443; 84481; 85025

== ENCOUNTER → 2024-11-18 | Outpatient (CLI) | payer BC, SELFPAY ==
[2024-11-18 10:45] LABS: Hemoglobin 13.6 g/dL (12.0-15.0); Red Blood Count 4.09 M/mm3 (4.2-5.4); White Blood Count 8.4 K/mm3 (4.4-11.0)
[2024-11-18 10:46] LABS: Hematocrit 40.5 % (37-47); Immature Granulocytes Count 0.030 X10^3/uL (0.0-0.0); Mean Corp Hgb Conc 33.6 g/dL (32-36); Mean Corpuscular Volume 99.0 fL (81-99); Mean Platelet Vol. 9.2 fl (6.2-12.0); Platelet Count 242 K/mm3 (150-450); RBC Distribution Width CV 12.5 % (11.6-14.6); RBC Distribution Width SD 45.9 fl (35.1-43.9)
[2024-11-18 11:09] LABS: AST(SGOT) 20 U/L (<=31); Alanine Aminotransfer ALT/SGPT 20 U/L (<=34); Albumin, Serum 4.3 g/dL (3.5-5.0); Alkaline Phosphatase 65 U/L (35-104); Anion Gap 11 (5-15); BUN 12 mg/dL (4-19); BUN/Creat Ratio 17.5 RATIO (10-20); Calcium,Total 9.3 mg/dL (7.6-11.0); Carbon Dioxide 21.7 mmol/L (21.0-32.0); Chloride 104 mmol/L (98-108); Globulin 2.5 g/dL (2.2-4.2); Glucose 90 mg/dL (70-99); Potassium 3.9 mmol/L (3.3-5.1)
[2024-11-18 11:11] LABS: CRP < 3.00 mg/L (0.0-3.0)
--- OUTSIDE RECORDS SUMMARY | 2024-11-18 21:16 | XMS RPT_ITS | CCD ---
Author Organization [facility] Care Team Providers Care Pillowcase Sewer Name Role Phone PAMELA WHITT Attending Provider [phone] PAMELA WHITT Referring Provider Care Physician, No Primary Primary Care Provider Unavailable Care Physician, No Primary Primary Care Unava ilable SASHA, CARLOS Referring Unavailable SASHA CARLOS Attending Unavailable HatchPhil garciasavy Referring Unavailable HatchPhil garciasavy Attending Unavailable Care Physician, No Primary Primary Care Unava ilable HUMBERTO CAMILO Attending Unavailable Allergies Allergy Classification Reported Allergen(s) Allergy Type Date of Onset Reaction(s) Facility (1 source) Sulfonamides (Antibiotic); Translations: [SULFA ANTIBIOTICS] Propensity to adverse reactions to drug (disorder) [facility] Repository Problems Problem Classification Problem Date Documented Da te Episodic/Chronic Menopausal disorders (2 sources) Menopausal and female climacteric states; Translations: [Menopausal and female climacteric states] Onset: 09-17-2024 Chronic Other skin disorders (2 sources) Hirsutism; Translations: [Hirsutism] Onset: 09-17-2024 Episodic Spondylosis; intervertebral disc disorders; other back problems (2 sources) Torticollis; Translations: [Torticollis] Onset: 09-17-2024 Episodic Thyroid disorders (1 source) Hypothyroidism, unspecified; Translations: [Hypothyroidism, unspecified] Onset: 09-15-2024 Chronic Results Test Name Value Interpretation Reference Range Facil ity Miscellaneous Lab Procedureo n 10-02-2024 [facility] LAB TEST Normal [facility] Comment on above: Order Comment: MERCEDES CURRAN TRI-TEST KIT DIRECT SEND OUT BY PATIENT Result Comment: Sent directly to testing facility per ordering physician. Performed By: #### L [id number] #### [facility] [address] [place], [address] CBC WITH AUTO DIFFERENTIALon 09-17-2024 BASO # 0.0 K CUMM Normal 0.0-0.2 [facility] Comment on above: Order Comment: Locat ion: Performed By: #### L [id number] #### CO[place] LUIS ([id number]) [facility] ([facility]) [address] [address] Basophils/100 WBC (Bld) 0.4 % Normal 0.0-3.0 [facility] Comment on above: Order Comment: Locat ion: Performed By: #### L [id number] #### CO[place] ([id number]) [facility] ([facility]) [address] [place] [address] Eosinophils (Bld) [#/Vol] 0.06 10*3/uL Normal 0.00-0.40 [facility] Comment on above: Order Comment: Locat ion: Performed By: #### L [id number] #### CO[place] ([id number]) [facility] ([facility]) [address] [place] [address] Eosinophils/100 WBC (Bld) 0.9 % Normal 0.0-7.0 [facility] Comment on above: Order Comment: Locat ion: Performed By: #### L [id number] #### CO[place] LUIS ([id number]) [facility] ([facility]) [address] [place] [address] Erythrocyte distribution width (RBC) [Ratio] 12.4 % Normal 11.5-15.5 [facility] Comment on above: Order Comment: Locat ion: Performed By: #### L [id number] #### CO[place] LUIS ([id number]) [facility] [address] [place] [address] Hematocrit (Bld) [Volume fraction] 41.2 % Normal 37.0-47.0 [facility] Comment on above: Order Comment: Locat ion: Performed By: #### L [id number] #### [place] ([id number]) [facility] ([facility]) [address] [address] Hemoglobin (Bld) [Mass/Vol] 13.5 g/dL Normal 11.5-15.5 [facility] Comment on above: Order Comment: Locat ion: Performed By: #### L [id number] #### CO[place]IS ([id number]) [facility] ([facility]) [address] [place] [address] IMMGRN# 0.0 K CUMM Normal 0.0-0.3 [facility] Comment on above: Order Comment: Locat ion: Performed By: #### L [id number] #### [place] ([id number]) [facility] ([facility]) [address] [place] [address] IMMGRN% 0.3 % Normal 0.0-3.0 [facility] Comment on above: Order Comment: Locat ion: Performed By: #### L [id number] #### CO[place] ([id number]) [facility] ([facility]) [address] [place] [address] LYMPH # 2.5 K CUMM Normal 0.7-4.5 [facility] Comment on above: Order Comment: Locat ion: Performed By: #### L [id number] #### CO[place]IS ([id number]) [facility] ([facility]) [address] [place] [address] Lymphocytes/100 WBC (Bld) 36.1 % Normal 14.0-46.0 [facility] Comment on above: Order Comment: Locat ion: Performed By: #### L [id number] #### CO[place] LUIS ([id number]) [facility] ([facility]) [address] [place] [address] MCH (RBC) [Entitic mass] 32.9 pg High 27.0-31.0 [facility] Comment on above: Order Comment: Locat ion: Performed By: #### L [id number] #### COLE LUIS ([id number]) [facility] ([facility]) [address] [address] MCHC (RBC) [Mass/Vol] 32.8 g/dL Normal 32.0-36.0 [facility] Comment on above: Order Comment: Locat ion: Performed By: #### L [id number] #### COLE LUIS ([id number]) [facility] ([facility]) [address] [place] [address] MCV (RBC) [Entitic vol] 100.5 fL High 78.0-100.0 [facility] Comment on above: Order Comment: Locat ion: Performed By: #### L [id number] #### COLE LUIS ([id number]) [facility] ([facility]) [address] [place] [address] MONO # 0.4 K CUMM Normal 0.1-1.0 [facility] Comment on above: Order Comment: Locat ion: Performed By: #### L [id number] #### CO[place] LUIS ([id number]) [facility] ([facility]) [address] [place] [address] Monocytes/100 WBC (Bld) 6.2 % Normal 4.0-13.0 [facility] Comment on above: Order Comment: Locat ion: Performed By: #### L [id number] #### CO[place] LUIS ([id number]) [facility] ([facility]) [address] [place] [address] RAJEEV # 3.9 K CUMM Normal 1.8-7.8 [facility] Comment on above: Order Comment: Locat ion: Performed By: #### L [id number] #### CO[place]IS ([id number]) [facility] ([facility]) [address] [place] [address]702 Neutrophils/100 WBC (Bld) 56.1 % Normal 40.0-74.0 [facility] Comment on above: Order Comment: Locat ion: Performed By: #### L [id number] #### [place] ([id number]) [facility] ([facility]) [address] [facility], [address] [address] Nucleated RBC/100 WBC (Bld) [Ratio] 0.0 % Normal 0.0-0.9 [facility] Comment on above: Order Comment: Locat ion: Performed By: #### L [id number] #### CO[place] ([id number]) [facility] ([facility]) [address] [address] Platelet mean volume (Bld) [Entitic vol] 10.0 fL Normal 8.9-12.6 [facility] Comment on above: Order Comment: Locat ion: Performed By: #### L [id number] #### CO[place] LUIS ([id number]) [facility] ([facility]) [address] [address] PLT 264 K CUMM Normal 130-400 [facility] Comment on above: Order Comment: Locat ion: Performed By: #### L [id number] #### CO[place] ([id number]) [facility] ([facility]) [address] [place] [address] RBC 4.1 M CUMM Normal 3.8-5.1 [facility] Comment on above: Order Comment: Locat ion: Performed By: #### L [id number] #### CO[place] LUIS ([id number]) [facility] ([facility]) [address] [address] WBC 6.9 K CUMM Normal 3.8-10.6 [facility] Comment on above: Order Comment: Locat ion: Performed By: #### L [id number] #### CO[place] LUIS ([id number]) [facility] ([facility]) [address] [place] [address] COMPREHENSIVE METABOLIC PANE Eber 09-17-2024 A/G RATIO 1.9 Normal [facility] Comment on above: Order Comment: Locat ion: Performed By: #### Steven GALLEGOS, LAB18 #### [place] ([id number]) [facility] ([facility]) [address] [address] Albumin [Mass/Vol] 4.6 g/dL Normal 3.2-4.8 [facility] Comment on above: Order Comment: Locat ion: Performed By: #### Steven GALLEGOS, LAB18 #### [place] ([id number]) [facility] ([facility]) [address] [address] ALP [Catalytic activity/Vol] 70 U/L Normal 40-127 [facility] Comment on above: Order Comment: Locat ion: Performed By: #### Steven GALLEGOS, LAB18 #### [place] ([id number]) [facility] ([facility]) [address] [place] [address] ALT [Catalytic activity/Vol] 18 U/L Normal 10-49 [facility] Comment on above: Order Comment: Locat ion: Performed By: #### Steven GALLEGOS, LAB18 #### CO[place] ([id number]) [facility] ([facility]) [address] [place] [address] AST [Catalytic activity/Vol] 19 U/L Normal <=34 [facility] Comment on above: Order Comment: Locat ion: Performed By: #### Steven GALLEGOS, LAB18 #### [place] ([id number]) [facility] ([facility]) [address] [place] [address] B/C RATIO 17.5 Normal 10.0-28.6 [facility] Comment on above: Order Comment: Locat ion: Performed By: #### Steven GALLEGOS, LAB18 #### [place] ([id number]) [facility] ([facility]) [address] [place] [address] Bilirubin [Mass/Vol] 0.3 mg/dL Normal 0.3-1.2 [facility] Comment on above: Order Comment: Locat ion: Performed By: #### L EL, LAB18 #### [place] ([id number]) [facility] [address] [facility], [facility] [address] [place] [address] Calcium [Mass/Vol] 9.7 mg/dL Normal 8.7-10.7 [facility] Comment on above: Order Comment: Locat ion: Performed By: #### L 17, LAB18 #### [place] ([id number]) [facility] ([facility]) [address] [facility], [address] [address] Chloride [Moles/Vol] 104 mmol/L Normal 100-110 [facility] Comment on above: Order Comment: Locat ion: Performed By: #### L EL, LAB18 #### CO[place] ([id number]) [facility] ([facility]) [address] [address] CO2 [Moles/Vol] 25 mmol/L Normal 20-31 [facility] Comment on above: Order Comment: Locat ion: Performed By: #### Steven GALLEGOS, LAB18 #### [place] ([id number]) [facility] ([facility]) 400 [facility] [address] [place] [address] Creatinine [Mass/Vol] 0.8 mg/dL Normal 0.6-1.0 [facility] Comment on above: Order Comment: Locat ion: Performed By: #### L AB17, LAB18 #### CO[place]IS ([id number]) [facility] ([facility]) [address] [facility] [address] [place] [address] GFR 89.9 mL/min/1.73m*2 Normal >=60.0 [facility] Comment on above: Order Comment: Locat ion: Performed By: #### L AB17, LAB18 #### CO[place] LUIS ([id number]) [facility] ([facility]) [address] [place] [address] Globulin (S) [Mass/Vol] 2.4 g/dL Normal [facility] Comment on above: Order Comment: Locat ion: Performed By: #### Steven GALLEGOS, LAB18 #### [place] ([id number]) [facility] ([facility]) [address] [address] Glucose [Mass/Vol] 86 mg/dL Normal 74-106 [facility] Comment on above: Order Comment: Locat ion: Performed By: #### Steven GALLEGOS, LAB18 #### [place] ([id number]) [facility] ([facility]) [address] [place] [address] Potassium [Moles/Vol] 4.3 mmol/L Normal 3.5-5.1 [facility] Comment on above: Order Comment: Locat ion: Performed By: #### Steven GALLEGOS, LAB18 #### [place] ([id number]) [facility] ([facility]) [address] [place] [address] Protein [Mass/Vol] 7.0 g/dL Normal 5.7-8.2 [facility] Comment on above: Order Comment: Locat ion: Performed By: #### Steven GALLEGOS, LAB18 #### [place] ([id number]) [facility] ([facility]) [address] [place] [address] Sodium [Moles/Vol] 143 mmol/L Normal 136-145 [facility] Comment on above: Order Comment: Locat ion: Performed By: #### L EL, LAB18 #### [place] ([id number]) [facility] ([facility]) [address] [place] [address] Urea nitrogen [Mass/Vol] 14 mg/dL Normal 9-23 [facility] Comment on above: Order Comment: Locat ion: Performed By: #### Steven GALLEGOS, LAB18 #### [place] ([id number]) [facility] ([facility]) [address] [facility], [address] [address] LIPID PANELon 09-17-2024 CHOL/HDL RATIO 2.8 Normal <=4.0 [facility] Comment on above: Order Comment: Locat ion: Performed By: #### L 17, LAB18 #### [place] ([id number]) [facility] ([facility]) [address] [facility], [address] [address] Cholesterol [Mass/Vol] 186 mg/dL Normal <=200 [facility] Comment on above: Order Comment: Locat ion: Performed By: #### Steven GALLEGOS, LAB18 #### [place] ([id number]) [facility] ([facility]) [address] [facility], [address] [address] Cholesterol in HDL [Mass/Vol] 66 mg/dL Normal >60 [facility] Comment on above: Order Comment: Locat ion: Performed By: #### L EL, LAB18 #### [place] ([id number]) [facility] ([facility]) [address] [address] Cholesterol in LDL [Mass/Vol] 101 mg/dL Normal <=130 [facility] Comment on above: Order Comment: Locat ion: Performed By: #### L EL, LAB18 #### [place] ([id number]) [facility] ([facility]) [address] [address] NON-HDL CHOL 120 Normal [facility] Comment on above: Order Comment: Locat ion: Result Comment: LDL and Non-HDL goal dependent upon individual risk Performed By: #### L AB17, LAB18 #### CO[place] ([id number]) [facility] ([facility]) [address] [address] Triglyceride [Mass/Vol] 95 mg/dL Normal <=150 [facility] Comment on above: Order Comment: Locat ion: Performed By: #### L AB17, LAB18 #### CO[place] ([id number]) [facility] ([facility]) [address] [facility], [address] [place] [address] VLDL-CALC 19 mg/dl Normal 0-30 [facility] Comment on above: Order Comment: Locat ion: Performed By: #### L AB17, LAB18 #### COLE TOBY ([id number]) [facility] ([facility]) [address] [facility], [address] [place] [address] Absolute lymphocyte counton 09-10-2024 Lymphocytes Auto (Unsp spec) [#/Vol] 2.01 10*3/uL 0.83-4.51 [facility] Absolute neutrophil counton 09-10-2024 Neutrophils (Bld) [#/Vol] 5.5 10*3/uL 2.0-7.7 [facility] Anion gap in Serum or Plasma on 09-10-2024 Anion gap [Moles/Vol] 12 mmol/L 5-15 [facility] Automated lymphocyte count a s percentage of total leukocyteson 09-10-2024 Lymphocytes/100 WBC Auto (Unsp spec) 24.9 % 19-41 [facility] BUN/creatinine ratioon 09-10 Urea nitrogen/Creatinine [Mass ratio] 15.4 mg/mg 10-20 [facility] Basophil percentageon 2024 Basophils/100 WBC (Bld) 0.4 % 0-1 [facility] Bilirubin, totalon Bilirubin [Mass/Vol] 0.58 mg/dL 0.00-1.30 [facility] CBC W/Diff, Automatedon Absolute Lymph 2.01 X10 3/uL Normal 0.83-4.51 [facility] Comment on above: Performed By: #### L 501.66416, L501.9520, L503.6550, L503.0106, L500.4050, L100.0100, L506.1001, L506.0400 #### [facility] [address] [place], [place], [id number] Absolute Neut 5.5 X10 3/uL Normal 2.0-7.7 [facility] Comment on above: Performed By: #### L 501.99650, L501.9520, L503.6550, L503.0106, L500.4050, L100.0100, L506.1001, L506.0400 #### [facility] [address] [place], [address] Basophils/100 WBC (Bld) 0.4 % Normal 0-1 [facility] Comment on above: Performed By: #### L 501.35411, L501.9520, L503.6550, L503.0106, L500.4050, L100.0100, L506.1001, L506.0400 #### [facility] [address] [place], [address] Eosinophils/100 WBC (Bld) 0.9 % Normal 0-5 [facility] Comment on above: Performed By: #### L 501.44897, L501.9520, L503.6550, L503.0106, L500.4050, L100.0100, L506.1001, L506.0400 #### [facility] [address] [facility] [place], [address] Erythrocyte distribution width (RBC) [Ratio] 12.3 % Normal 11.6-14.6 [facility] Comment on above: Performed By: #### L 501.83651, L501.9520, L503.6550, L503.0106, L500.4050, L100.0100, L506.1001, L506.0400 #### [facility] [address] [place], [address] Hematocrit (Bld) [Volume fraction] 42.5 % Normal 37-47 [facility] Comment on above: Performed By: #### L 501.60312, L501.9520, L503.6550, L503.0106, L500.4050, L100.0100, L506.1001, L506.0400 #### [facility] [address] [place], [address] Hemoglobin (Bld) [Mass/Vol] 14.7 g/dL Normal 12.0-15.0 [facility] Comment on above: Performed By: #### L 501.29018, L501.9520, L503.6550, L503.0106, L500.4050, L100.0100, L506.1001, L506.0400 #### [facility] [address] [place], [address] IG% 0.500 Normal 0.0-0.9 [facility] Comment on above: Result Comment: IG% - Immature Granulocytes (promyelocytes, myelocytes and metamyelocytes) > 1% indicates that a LEFT SHIFT is Present. Performed By: #### L 501.62377, L501.9520, L503.6550, L503.0106, L500.4050, L100.0100, L506.1001, L506.0400 #### [facility] [address] [place], [address] Lymphocytes/100 WBC (Bld) 24.9 % Normal 19-41 [facility] Comment on above: Performed By: #### L 501.72454, L501.9520, L503.6550, L503.0106, L500.4050, L100.0100, L506.1001, L506.0400 #### [facility] [address] [place], [address] MCH (RBC) [Entitic mass] 33.6 pg High 27.0-32.0 [facility] Comment on above: Performed By: #### L 501.82042, L501.9520, L503.6550, L503.0106, L500.4050, L100.0100, L506.1001, L506.0400 #### [facility] [address] [place], [address] MCHC (RBC) [Mass/Vol] 34.6 g/dL Normal 32-36 [facility] Comment on above: Performed By: #### L 501.77865, L501.9520, L503.6550, L503.0106, L500.4050, L100.0100, L506.1001, L506.0400 #### [facility] [address] [place], [address] MCV (RBC) [Entitic vol] 97.3 fL Normal 81-99 [facility] Comment on above: Performed By: #### L 501.42484, L501.9520, L503.6550, L503.0106, L500.4050, L100.0100, L506.1001, L506.0400 #### [facility] [address] [place], [address] Monocytes/100 WBC (Bld) 5.3 % Normal 0-10 [facility] Comment on above: Performed By: #### L 501.78725, L501.9520, L503.6550, L503.0106, L500.4050, L100.0100, L506.1001, L506.0400 #### [facility] [address] [place], [address] Neutrophils/100 WBC (Bld) 68.0 % Normal 47-70 [facility] Comment on above: Performed By: #### L 501.56537, L501.9520, L503.6550, L503.0106, L500.4050, L100.0100, L506.1001, L506.0400 #### [facility] [address] [place], [address] Nucleated RBC (Bld) [#/Vol] 0 10*3/uL Normal 0-5 [facility] Comment on above: Performed By: #### L 501.07973, L501.9520, L503.6550, L503.0106, L500.4050, L100.0100, L506.1001, L506.0400 #### [facility] [address] [place], [address] ( Platelet mean volume (Bld) [Entitic vol] 9.2 fL Normal 6.2-12.0 [facility] Comment on above: Performed By: #### L 501.87964, L501.9520, L503.6550, L503.0106, L500.4050, L100.0100, L506.1001, L506.0400 #### [facility] [address] [place], [address] ( Platelets (Bld) [#/Vol] 260 10*3/uL Normal 150-450 [facility] Comment on above: Performed By: #### L 501.00849, L501.9520, L503.6550, L503.0106, L500.4050, L100.0100, L506.1001, L506.0400 #### [facility] [address] [place], [address] (968) RBC (Bld) [#/Vol] 4.37 10*6/uL Normal 4.2-5.4 [facility] Comment on above: Performed By: #### L 501.68657, L501.9520, L503.6550, L503.0106, L500.4050, L100.0100, L506.1001, L506.0400 #### [facility] [address] [place], [address] RDW SD 44.4 fl High 35.1-43.9 [facility] Comment on above: Performed By: #### L 501.63607, L501.9520, L503.6550, L503.0106, L500.4050, L100.0100, L506.1001, L506.0400 #### [facility] [address] [place], [address] WBC (Bld) [#/Vol] 8.1 10*3/uL Normal 4.4-11.0 [facility] Comment on above: Performed By: #### L 501.17012, L501.9520, L503.6550, L503.0106, L500.4050, L100.0100, L506.1001, L506.0400 #### [facility] [address] [place], [address] Carbon dioxide, total [Moles /volume] in Central venous bloodon 09-10-2024 CO2 [Moles/Vol] 23.0 mmol/L 21.0-32.0 [facility] Chloride assayon 09-10-2024 Chloride [Moles/Vol] 104 mmol/L 98-108 [facility] Comprehensive Metabolic Prof ilon 09-10-2024 Albumin [Mass/Vol] 4.2 g/dL Normal 3.5-5.0 [facility] Comment on above: Performed By: #### L 501.38243, L501.9520, L503.6550, L503.0106, L500.4050, L100.0100, L506.1001, L506.0400 #### [facility] [address] [place], [address] Albumin/Globulin [Mass ratio] 1.6 {ratio} Normal 0.9-2.4 [facility] Comment on above: Performed By: #### L 501.01729, L501.9520, L503.6550, L503.0106, L500.4050, L100.0100, L506.1001, L506.0400 #### [facility] [address] [place], [address] ALK PHOS 53 U/L Normal 35-104 [facility] Comment on above: Performed By: #### L 501.35985, L501.9520, L503.6550, L503.0106, L500.4050, L100.0100, L506.1001, L506.0400 #### [facility] [address] [place], [address] ALT [Catalytic activity/Vol] 19 U/L Normal <=34 [facility] Comment on above: Performed By: #### L 501.64248, L501.9520, L503.6550, L503.0106, L500.4050, L100.0100, L506.1001, L506.0400 #### [facility] [address] [place], [address] AST [Catalytic activity/Vol] 18 U/L Normal <=31 [facility] Comment on above: Performed By: #### L 501.90483, L501.9520, L503.6550, L503.0106, L500.4050, L100.0100, L506.1001, L506.0400 #### [facility] [address] [place], [place], [id number] ([phone] Bilirubin [Mass/Vol] 0.58 mg/dL Normal 0.00-1.30 [facility] Comment on above: Performed By: #### L 501.42138, L501.9520, L503.6550, L503.0106, L500.4050, L100.0100, L506.1001, L506.0400 #### [facility] [address] [place], [address] BUN/CRE 15.4 RATIO Normal 10-20 [facility] Comment on above: Performed By: #### L 501.91318, L501.9520, L503.6550, L503.0106, L500.4050, L100.0100, L506.1001, L506.0400 #### [facility] [address] [place], [address] Calcium [Mass/Vol] 9.3 mg/dL Normal 7.6-11.0 [facility] Comment on above: Performed By: #### L 501.59348, L501.9520, L503.6550, L503.0106, L500.4050, L100.0100, L506.1001, L506.0400 #### [facility] [address] [place], [address] Chloride [Moles/Vol] 104 mmol/L Normal 98-108 [facility] Comment on above: Performed By: #### L 501.69192, L501.9520, L503.6550, L503.0106, L500.4050, L100.0100, L506.1001, L506.0400 #### [facility] [address] [place], [address] CO2 [Moles/Vol] 23.0 mmol/L Normal 21.0-32.0 [facility] Comment on above: Performed By: #### L 501.49325, L501.9520, L503.6550, L503.0106, L500.4050, L100.0100, L506.1001, L506.0400 #### [facility] [address] [place], [address] Creatinine [Mass/Vol] 0.71 mg/dL Normal 0.70-1.20 [facility] Comment on above: Performed By: #### L 501.25190, L501.9520, L503.6550, L503.0106, L500.4050, L100.0100, L506.1001, L506.0400 #### [facility] [address] [place], [address] GAP 12 Normal 5-15 [facility] Comment on above: Performed By: #### L 501.27638, L501.9520, L503.6550, L503.0106, L500.4050, L100.0100, L506.1001, L506.0400 #### [facility] [address] [place], [address] GFR/1.73 sq M.predicted among non-blacks MDRD (S/P/Bld) [Vol rate/Area] 104 mL/min/{1.73_m2} Normal >60 [facility] Comment on above: Result Comment: mL/m in/1.73m2 CKD-EPI Creatinine Equation (2020) Performed By: #### L 501.23288, L501.9520, L503.6550, L503.0106, L500.4050, L100.0100, L506.1001, L506.0400 #### [facility] [address] [place], [address] Globulin (S) [Mass/Vol] 2.7 g/dL Normal 2.2-4.2 [facility] Comment on above: Performed By: #### L 501.98042, L501.9520, L503.6550, L503.0106, L500.4050, L100.0100, L506.1001, L506.0400 #### [facility] [address] [place], [address] Glucose [Mass/Vol] 97 mg/dL Normal 70-99 [facility] Comment on above: Performed By: #### L 501.39965, L501.9520, L503.6550, L503.0106, L500.4050, L100.0100, L506.1001, L506.0400 #### [facility] [address] [place], [address] Potassium [Moles/Vol] 4.1 mmol/L Normal 3.3-5.1 [facility] Comment on above: Performed By: #### L 501.90223, L501.9520, L503.6550, L503.0106, L500.4050, L100.0100, L506.1001, L506.0400 #### [facility] [address] [place], [address] Sodium [Moles/Vol] 138 mmol/L Normal 133-145 [facility] Comment on above: Performed By: #### L 501.85662, L501.9520, L503.6550, L503.0106, L500.4050, L100.0100, L506.1001, L506.0400 #### [facility] [address] [place], [address] T PROT 6.9 g/dL Normal 5.9-8.4 [facility] Comment on above: Performed By: #### L 501.71772, L501.9520, L503.6550, L503.0106, L500.4050, L100.0100, L506.1001, L506.0400 #### [facility] [address] [place], [address] Urea nitrogen [Mass/Vol] 11 mg/dL Normal 4-19 [facility] Comment on above: Performed By: #### L 501.39374, L501.9520, L503.6550, L503.0106, L500.4050, L100.0100, L506.1001, L506.0400 #### [facility] [address] [place], [address] Eosinophil percentageon 05-0 Eosinophils/100 WBC (Bld) 0.9 % 0-5 [facility] Erythrocyte distribution wid th ratioon 09-10-2024 Erythrocyte distribution width (RBC) [Ratio] 12.3 % 11.6-14.6 [facility] Erythrocyte distribution wid th standard deviationon 09-10-2024 Erythrocyte distribution width (RBC) [Ratio] 44.4 fl High 35.1-43.9 [facility] Ferritinon 09-10-2024 Ferritin [Mass/Vol] 103 ng/mL Normal 22-378 [facility] Comment on above: Performed By: #### L 100.0100, L501.9520, L503.6550, L3300.0940, L506.0400, L501.62183, L500.4050 #### [facility] [address] [place], [place], [phone] Free T3on 09-10-2024 Free T3 [Mass/Vol] 2.3 pg/mL Normal 2.18-3.98 [facility] Comment on above: Performed By: #### L 100.0100, L501.9520, L503.6550, L3300.0940, L506.0400, L501.95650, L500.4050 #### [facility] [address] [place], [place], [id number] Free T3 [Mass/Vol] 2.3 pg/mL 2.18-3.98 [facility] Glomerular filtration rate ( GFR) estimation/1.73 sq m using serum, plasma, or whole bon 09-10-2024 GFR/1.73 sq M.predicted among non-blacks MDRD (S/P/Bld) [Vol rate/Area] 104 mL/min/{1.73_m2} >60 [facility] Comment on above: mL/min/1.73m2 CKD-EP I Creatinine Equation (2020) Hematocrit Auto (Bld) [Volum e fraction]on 09-10-2024 Hematocrit (Bld) [Volume fraction] 42.5 % 37-47 [facility] Hemoglobin measurementon Hemoglobin (Bld) [Mass/Vol] 14.7 g/dL 12.0-15.0 [facility] Immature granulocytes/100 WB C Auto (Bld)on 09-10-2024 Immature granulocytes/100 WBC (Bld) 0.500 % 0.0-0.9 [facility] Comment on above: IG% - Immature Granu locytes (promyelocytes, myelocytes and metamyelocytes) > 1% indicates that a LEFT SHIFT is Present. Laboratory - Chemistry and C hemistry - challengeon 09-10-2024 AST [Catalytic activity/Vol] 18 U/L <32 [facility] MCV (mean corpuscular volume ) determinationon 09-10-2024 MCV (RBC) [Entitic vol] 97.3 fL 81-99 [facility] Mean corpuscular hemoglobin (MCH) determinationon 09-10-2024 MCH (RBC) [Entitic mass] 33.6 pg High 27.0-32.0 [facility] Mean corpuscular hemoglobin concentration (MCHC) determinationon 09-10-2024 MCHC (RBC) [Mass/Vol] 34.6 g/dL 32-36 [facility] Mean platelet volume determi nationon 09-10-2024 Platelet mean volume (Bld) [Entitic vol] 9.2 fL 6.2-12.0 [facility] Monocyte percentageon 2024 Monocytes/100 WBC (Bld) 5.3 % 0-10 [facility] Neutrophil percentageon 05- Neutrophils/100 WBC (Bld) 68.0 % 47-70 [facility] Nucleated red blood cell per centageon 09-10-2024 Nucleated RBC/100 WBC (Bld) [Ratio] 0 % 0-5 [facility] Platelet counton 09-10-2024 Platelets (Bld) [#/Vol] 260 10*3/uL 150-450 [facility] Potassium measurement (mass/ volume)on 09-10-2024 Potassium (Unsp spec) [Mass/Vol] 4.1 mmol/L 3.3-5.1 [facility] RBC Auto (Bld) [#/Vol]on RBC (Bld) [#/Vol] 4.37 10*6/uL 4.2-5.4 [facility] Serum creatinine measurement (mass/volume)on 09-10-2024 Creatinine [Mass/Vol] 0.71 mg/dL 0.70-1.20 [facility] Serum globulin measurementon 09-10-2024 Globulin (S) [Mass/Vol] 2.7 g/dL 2.2-4.2 [facility] Serum glucose measurement (m ass/volume)on 09-10-2024 Glucose [Mass/Vol] 97 mg/dL 70-99 [facility] Serum or plasma alanine garcia otransferase (ALT) measurementon 09-10-2024 ALT [Catalytic activity/Vol] 19 U/L <35 [facility] Serum or plasma albumin bob urement (mass/volume)on 09-10-2024 Albumin [Mass/Vol] 4.2 g/dL 3.5-5.0 [facility] Serum or plasma albumin/glob ulin mass ratioon 09-10-2024 Albumin/Globulin [Mass ratio] 1.6 {ratio} 0.9-2.4 [facility] Serum or plasma alkaline reta sphatase measurementon 09-10-2024 ALP [Catalytic activity/Vol] 53 U/L 35-104 [facility] Serum or plasma calcium bob urement (mass/volume)on 09-10-2024 Calcium [Mass/Vol] 9.3 mg/dL 7.6-11.0 [facility] Serum or plasma ferritin hernesto surement (mass/volume)on 09-10-2024 Ferritin [Mass/Vol] 103 ng/mL 22-378 [facility] Serum or plasma urea nitroge n measurement (mass/volume)on 09-10-2024 Urea nitrogen [Mass/Vol] 11 mg/dL 4-19 [facility] Sodium levelon 09-10-2024 Sodium [Moles/Vol] 138 mmol/L 133-145 [facility] T4 Free Directon 09-10-2024 T4 FREE DIRECT 1.00 ng/dL Normal 0.76-1.46 [facility] Comment on above: Performed By: #### L 100.0100, L501.9520, L503.6550, L3300.0940, L506.0400, L501.21840, L500.4050 #### [facility] [place], [address] T4 freeon 09-10-2024 Free T4 [Mass/Vol] 1.00 ng/dL 0.76-1.46 [facility] TSH DL <= 0.005 mIU/L Qnon 0 09-10-2024 TSH Qn 0.498 uIU/mL 0.300-4.200 [facility] Thyroid Stim Hormone (TSH)on 09-10-2024 TSH 0.498 uIU/mL Normal 0.300-4.200 [facility] Comment on above: Performed By: #### L 100.0100, L501.9520, L503.6550, L3300.0940, L506.0400, L501.19941, L500.4050 #### [facility] [address] [place], [address] Total proteinon 09-10-2024 Protein [Mass/Vol] 6.9 g/dL 5.9-8.4 [facility] Vitamin B12on 09-10-2024 Cobalamin (Vitamin B12) [Mass/Vol] 1155 pg/mL High 180-914 [facility] Comment on above: Performed By: #### L 100.0100, L501.9520, L503.6550, L3300.0940, L506.0400, L501.81517, L500.4050 #### [facility] [address] [place], [address] Vitamin B12 ser/plason 09-10 Cobalamin (Vitamin B12) [Mass/Vol] 1155 pg/mL High 180-914 [facility] Vitamin D,25 Hydroxyon 09-10 Vitamin D 25-OH 76.6 ng/mL Normal 30-100 [facility] Comment on above: Result Comment: Stefanie min D Status Deficiency: <20 ng/mL (50nmol/L) Insufficiency: 20-30 ng/mL (50-75 nmol/L) Sufficiency: 30-100 ng/mL (75-250 nmol/L) Toxicity: >100 ng/mL (>250 nmol/L) Performed By: #### L 100.0100, L501.9520, L503.6550, L3300.0940, L506.0400, L501.59254, L500.4050 #### [facility] [address] [place], [address] White blood cell (WBC) count on 09-10-2024 WBC (Bld) [#/Vol] 8.1 10*3/uL 4.4-11.0 [facility] L3300.0940on 02-24-2024 VIT D,25 HYDROX Normal [facility] Comment on above: Result Comment: TEST RESULTS LIMITS Vitamin D, 25-Hydroxy 61.3 ng/mL 30.0-100.0 Vitamin D deficiency has been defined by the [place] [employer] and an Endocrine Society practice guideline as a level of serum 25-OH vitamin D less than 20 ng/mL (1,2). The Endocrine Society went on to further define vitamin D insufficiency as a level between 21 and 29 ng/mL (2). 1. IOM ([place] [employer]). 2010. Dietary reference intakes for calcium and D. [place]: The National Academies Press. 2. Varsha MF, Pascual LUKE, Yadiel DELACRUZ, et al. Evaluation, treatment, and prevention of vitamin D deficiency: an Endocrine Society clinical practice guideline. JCEM. 2011 Nov; 96(7):1911-30. TESTING PERFORMED AT [facility]. ORIGINAL REPORT ON FILE IN LAB CONTAINS ADDITIONAL TEST SITE INFORMATION. Performed By: #### L 100.0100, L501.9520, L503.6550, L3300.0940, L506.0400, L501.14711, L500.4050 #### [facility] [address] [place], [address] CBC W/Diff, Automatedon - Absolute Lymph 1.98 X10 3/uL Normal 0.83-4.51 [facility] Comment on above: Performed By: #### L 100.0100, L501.9520, L503.6550, L3300.0940, L506.0400, L501.70055, L500.4050 #### [facility] [address] [place], [address] Absolute Neut 3.8 X10 3/uL Normal 2.0-7.7 [facility] Comment on above: Performed By: #### L 100.0100, L501.9520, L503.6550, L3300.0940, L506.0400, L501.70075, L500.4050 #### [facility] [address] [place], [address] Basophils/100 WBC (Bld) 0.5 % Normal 0-1 [facility] Comment on above: Performed By: #### L 100.0100, L501.9520, L503.6550, L3300.0940, L506.0400, L501.55241, L500.4050 #### [facility] [address] [place], [address] Eosinophils/100 WBC (Bld) 1.4 % Normal 0-5 [facility] Comment on above: Performed By: #### L 100.0100, L501.9520, L503.6550, L3300.0940, L506.0400, L501.13436, L500.4050 #### [facility] [address] [place], [address] Erythrocyte distribution width (RBC) [Ratio] 11.9 % Normal 11.6-14.6 [facility] Comment on above: Performed By: #### L 100.0100, L501.9520, L503.6550, L3300.0940, L506.0400, L501.54771, L500.4050 #### [facility] [address] [place], [address] Hematocrit (Bld) [Volume fraction] 41.9 % Normal 37-47 [facility] Comment on above: Performed By: #### L 100.0100, L501.9520, L503.6550, L3300.0940, L506.0400, L501.26788, L500.4050 #### [facility] [address] [place], [address] Hemoglobin (Bld) [Mass/Vol] 14.2 g/dL Normal 12.0-15.0 [facility] Comment on above: Performed By: #### L 100.0100, L501.9520, L503.6550, L3300.0940, L506.0400, L501.62000, L500.4050 #### [facility] [address] [place], [address] IG% 0.300 Normal 0.0-0.9 [facility] Comment on above: Result Comment: IG% - Immature Granulocytes (promyelocytes, myelocytes and metamyelocytes) > 1% indicates that a LEFT SHIFT is Present. Performed By: #### L 100.0100, L501.9520, L503.6550, L3300.0940, L506.0400, L501.03615, L500.4050 #### [facility] [address] [place], [address] Lymphocytes/100 WBC (Bld) 31.4 % Normal 19-41 [facility] Comment on above: Performed By: #### L 100.0100, L501.9520, L503.6550, L3300.0940, L506.0400, L501.39878, L500.4050 #### [facility] [address] [place], [address] MCH (RBC) [Entitic mass] 33.6 pg High 27.0-32.0 [facility] Comment on above: Performed By: #### L 100.0100, L501.9520, L503.6550, L3300.0940, L506.0400, L501.78905, L500.4050 #### [facility] [address] [place], [address] MCHC (RBC) [Mass/Vol] 33.9 g/dL Normal 32-36 [facility] Comment on above: Performed By: #### L 100.0100, L501.9520, L503.6550, L3300.0940, L506.0400, L501.52180, L500.4050 #### [facility] [address] [place], [address] MCV (RBC) [Entitic vol] 99.3 fL High 81-99 [facility] Comment on above: Performed By: #### L 100.0100, L501.9520, L503.6550, L3300.0940, L506.0400, L501.85587, L500.4050 #### [facility] [address] [place], [address] Monocytes/100 WBC (Bld) 5.5 % Normal 0-10 [facility] Comment on above: Performed By: #### L 100.0100, L501.9520, L503.6550, L3300.0940, L506.0400, L501.96718, L500.4050 #### [facility] [address] [place], [address] Neutrophils/100 WBC (Bld) 60.9 % Normal 47-70 [facility] Comment on above: Performed By: #### L 100.0100, L501.9520, L503.6550, L3300.0940, L506.0400, L501.37026, L500.4050 #### [facility] [address] [place], [address] Nucleated RBC (Bld) [#/Vol] 0 10*3/uL Normal 0-5 [facility] Comment on above: Performed By: #### L 100.0100, L501.9520, L503.6550, L3300.0940, L506.0400, L501.88909, L500.4050 #### [facility] [address] [place], [address] Platelet mean volume (Bld) [Entitic vol] 9.4 fL Normal 6.2-12.0 [facility] Comment on above: Performed By: #### L 100.0100, L501.9520, L503.6550, L3300.0940, L506.0400, L501.17155, L500.4050 #### [facility] [address] [place], [address] Platelets (Bld) [#/Vol] 262 10*3/uL Normal 150-450 [facility] Comment on above: Performed By: #### L 100.0100, L501.9520, L503.6550, L3300.0940, L506.0400, L501.18544, L500.4050 #### [facility] [address] [place], [address] RBC (Bld) [#/Vol] 4.22 10*6/uL Normal 4.2-5.4 [facility] Comment on above: Performed By: #### L 100.0100, L501.9520, L503.6550, L3300.0940, L506.0400, L501.46533, L500.4050 #### [facility] [address] [place], [address] RDW SD 43.6 fl Normal 35.1-43.9 [facility] Comment on above: Performed By: #### L 100.0100, L501.9520, L503.6550, L3300.0940, L506.0400, L501.76344, L500.4050 #### [facility] [address] [place], [address] WBC (Bld) [#/Vol] 6.3 10*3/uL Normal 4.4-11.0 [facility] Comment on above: Performed By: #### L 100.0100, L501.9520, L503.6550, L3300.0940, L506.0400, L501.46177, L500.4050 #### [facility] [address] [place], [address] Comprehensive Metabolic Prof ilon 02-21-2024 Albumin [Mass/Vol] 3.9 g/dL Normal 3.2-5.0 [facility] Comment on above: Performed By: #### L 100.0100, L501.9520, L503.6550, L3300.0940, L506.0400, L501.29801, L500.4050 #### [facility] [address] [place], [address] Albumin/Globulin [Mass ratio] 1.1 {ratio} Normal 0.9-2.4 [facility] Comment on above: Performed By: #### L 100.0100, L501.9520, L503.6550, L3300.0940, L506.0400, L501.45568, L500.4050 #### [facility] [address] [place], [address] ALK P 64 U/L Normal 45-117 [facility] Comment on above: Performed By: #### L 100.0100, L501.9520, L503.6550, L3300.0940, L506.0400, L501.27594, L500.4050 #### [facility] [address] [place], [address] ALT [Catalytic activity/Vol] 27 U/L Normal 13-56 [facility] Comment on above: Performed By: #### L 100.0100, L501.9520, L503.6550, L3300.0940, L506.0400, L501.46254, L500.4050 #### [facility] [address] [place], [address] AST [Catalytic activity/Vol] 19 U/L Normal 15-37 [facility] Comment on above: Performed By: #### L 100.0100, L501.9520, L503.6550, L3300.0940, L506.0400, L501.34722, L500.4050 #### [facility] [address] [place], [address] Bilirubin [Mass/Vol] 0.60 mg/dL Normal 0.20-1.00 [facility] Comment on above: Result Comment: For patients on eltrombopag therapy, use of Dimension [place] TBIL is not recommended. Performed By: #### L 100.0100, L501.9520, L503.6550, L3300.0940, L506.0400, L501.90219, L500.4050 #### [facility] [address] [place], [address] BUN/CRE 12.7 RATIO Normal 10-20 [facility] Comment on above: Performed By: #### L 100.0100, L501.9520, L503.6550, L3300.0940, L506.0400, L501.37825, L500.4050 #### [facility] [address] [place], [address] CA,Total 9.5 mg/dL Normal 8.5-10.1 [facility] Comment on above: Performed By: #### L 100.0100, L501.9520, L503.6550, L3300.0940, L506.0400, L501.66026, L500.4050 #### [facility] [address] [place], [address] Chloride [Moles/Vol] 109 mmol/L High 98-107 [facility] Comment on above: Performed By: #### L 100.0100, L501.9520, L503.6550, L3300.0940, L506.0400, L501.39207, L500.4050 #### [facility] [address] [place], [address] CO2 [Moles/Vol] 27.0 mmol/L Normal 21.0-32.0 [facility] Comment on above: Performed By: #### L 100.0100, L501.9520, L503.6550, L3300.0940, L506.0400, L501.56633, L500.4050 #### [facility] [address] [place], [address] Creatinine [Mass/Vol] 0.71 mg/dL Normal 0.55-1.02 [facility] Comment on above: Result Comment: The validity of the calculated GFR GFRAA in patients over 70 years has not been determined. Clinical correlation is essential. Performed By: #### L 100.0100, L501.9520, L503.6550, L3300.0940, L506.0400, L501.45756, L500.4050 #### [facility] [address] [place], [address] EST GFR - AA 112 mL/min Normal >60 [facility] Comment on above: Result Comment: Afri can [place] GFR Calc Performed By: #### L 100.0100, L501.9520, L503.6550, L3300.0940, L506.0400, L501.39937, L500.4050 #### [facility] [address] [place], [address] GAP 5 Normal 5-15 [facility] Comment on above: Performed By: #### L 100.0100, L501.9520, L503.6550, L3300.0940, L506.0400, L501.96347, L500.4050 #### [facility] [address] [place], [address] GFR/1.73 sq M.predicted among non-blacks MDRD (S/P/Bld) [Vol rate/Area] 93 mL/min/{1.73_m2} Normal >60 [facility] Comment on above: Result Comment: Non- GFR Calc Performed By: #### L 100.0100, L501.9520, L503.6550, L3300.0940, L506.0400, L501.68171, L500.4050 #### [facility] [address] [place], [address] Globulin (S) [Mass/Vol] 3.5 g/dL Normal 2.2-4.2 [facility] Comment on above: Performed By: #### L 100.0100, L501.9520, L503.6550, L3300.0940, L506.0400, L501.11907, L500.4050 #### [facility] [address] [place], [address] Glucose [Mass/Vol] 91 mg/dL Normal 74-106 [facility] Comment on above: Performed By: #### L 100.0100, L501.9520, L503.6550, L3300.0940, L506.0400, L501.07288, L500.4050 #### [facility] [address] [place], [address] Potassium [Moles/Vol] 4.2 mmol/L Normal 3.5-5.1 [facility] Comment on above: Performed By: #### L 100.0100, L501.9520, L503.6550, L3300.0940, L506.0400, L501.94833, L500.4050 #### [facility] [address] [place], [address] Sodium [Moles/Vol] 141 mmol/L Normal 136-145 [facility] Comment on above: Performed By: #### L 100.0100, L501.9520, L503.6550, L3300.0940, L506.0400, L501.62296, L500.4050 #### [facility] [address] [place], [address] T PROT 7.4 g/dL Normal 6.4-8.2 [facility] Comment on above: Performed By: #### L 100.0100, L501.9520, L503.6550, L3300.0940, L506.0400, L501.70238, L500.4050 #### [facility] [address] [place], [address] Urea nitrogen [Mass/Vol] 9 mg/dL Normal 7-18 [facility] Comment on above: Performed By: #### L 100.0100, L501.9520, L503.6550, L3300.0940, L506.0400, L501.76281, L500.4050 #### [facility] [address] [place], [address] Ferritinon 02-21-2024 Ferritin [Mass/Vol] 88 ng/mL Normal 8-252 [facility] Comment on above: Performed By: #### L 100.0100, L501.9520, L503.6550, L3300.0940, L506.0400, L501.73474, L500.4050 #### [facility] [address] [place], [address] Free T3on 02-21-2024 Free T3 [Mass/Vol] 2.1 pg/mL Low 2.18-3.98 [facility] Comment on above: Performed By: #### L 100.0100, L501.9520, L503.6550, L3300.0940, L506.0400, L501.68803, L500.4050 #### [facility] [address] [place], [address] T4 Free Directon 02-21-2024 T4 FREE DIRECT 0.92 ng/dL Normal 0.76-1.46 [facility] Comment on above: Performed By: #### L 100.0100, [id number], L503.6550, L3300.0940, L506.0400, L501.31628, L500.4050 #### [facility] [address] [place], [address] Thyroid Stim Hormone (TSH)on 02-21-2024 TSH 0.396 uIU/mL Normal 0.358-3.740 [facility] Comment on above: Performed By: #### L 100.0100, L501.9520, L503.6550, [id number], L506.0400, [id number], L500.4050 #### [facility] [address] [place], [place], [id number] Absolute lymphocyte counton 02-24-2023 Lymphocytes Auto (Unsp spec) [#/Vol] 1.96 10*3/uL 0.83-4.51 [facility] Basophil percentageon 2022 Basophils/100 WBC (Bld) 0.5 % 0-1 [facility] Eosinophils/100 WBC (Bld) 1.3 % 0-5 [facility] Neutrophils (Bld) [#/Vol] 5.2 10*3/uL 2.0-7.7 [facility] Neutrophils/100 WBC (Bld) 67.5 % 47-70 [facility] WBC (Bld) [#/Vol] 7.6 10*3/uL 4.4-11.0 [facility] Blood erythrocytes count (nu mber/volume)on 02-24-2023 RBC (Bld) [#/Vol] 3.83 10*6/uL 4.2-5.4 [facility] Blood hemoglobin measurement (mass/volume)on 02-24-2023 Hemoglobin (Bld) [Mass/Vol] 12.8 g/dL 12.0-15.0 [facility] Blood lymphocytes/100 leukoc yteson 02-24-2023 Lymphocytes/100 WBC (Bld) 25.7 % 19-41 [facility] Blood monocytes/100 leukocyt eson 02-24-2023 Monocytes/100 WBC (Bld) 4.7 % 0-10 [facility] Blood platelet mean volumeon 02-24-2023 Platelet mean volume (Bld) [Entitic vol] 9.3 fL 6.2-12.0 [facility] Determination of erythrocyte mean corpuscular volume (MCV)on 02-24-2023 MCV (RBC) [Entitic vol] 103.7 fL 81-99 [facility] Hematocrit Auto (Bld) [Volum e fraction]on 02-24-2023 Hematocrit (Bld) [Volume fraction] 39.7 % 37-47 [facility] - Chemistry and C hemistry - challengeon 02-24-2023 Cobalamin (Vitamin B12) [Mass/Vol] 996 pg/mL 211-911 [facility] Free T4 [Mass/Vol] 0.74 ng/dL 0.76-1.46 [facility] - Hematology and Cell countson 02-24-2023 Erythrocyte distribution width (RBC) [Entitic vol] 48.8 fL 35.1-43.9 [facility] Erythrocyte distribution width (RBC) [Ratio] 12.8 % 11.6-14.6 [facility] Immature granulocytes/100 WBC (Bld) 0.300 % 0.0-0.9 [facility] Comment on above: IG% - Immature Granu locytes (promyelocytes, myelocytes and metamyelocytes) > 1% indicates that a LEFT SHIFT is Present. MCH (RBC) [Entitic mass] 33.4 pg 27.0-32.0 [facility] Nucleated RBC/100 WBC (Bld) [Ratio] 0 % 0-5 [facility] MCHC Auto (RBC) [Mass/Vol]on 02-24-2023 MCHC (RBC) [Mass/Vol] 32.2 g/dL 32-36 [facility] No Panel Informationon 02-24 Free Triiodothyronine (T3) pg/dL 1.9 pg/mL 2.18-3.98 [facility] Thyroid Stimulating Hormone (TSH) 2.01 uIU/mL 0.358-3.74 [facility] Vitamin D 25-Hydroxy 52.8 ng/mL [facility] Comment on above: Vitamin D 25(OH) Sta tus Range Deficiency <20 ng/mL (50nmol/L) Insufficiency 20 - 30 ng/mL (50 - 75 nmol/L) Sufficiency 30 - 100 ng/mL (75 - 250 nmol/L) Toxicity >100 ng/mL (>250 nmol/L) Platelets bldon 02-24-2023 Platelets (Bld) [#/Vol] 217 10*3/uL 150-450 [facility] Serum or plasma ferritin hernesto surement (mass/volume)on 02-24-2023 Ferritin [Mass/Vol] 62 ng/mL 8-252 [facility] Whole blood hemoglobin A1c/t otal hemoglobin ratio (mass fraction)on 02-24-2023 HbA1c (Bld) [Mass fraction] 4.8 % 3.8-5.6 [facility] Comment on above: Normal < 5.7 % Predi abetic 5.7 - 6.4 % Diabetic >or= 6.5 % Please note range changes. Absolute lymphocyte counton 08-12-2022 Lymphocytes Auto (Unsp spec) [#/Vol] 1.58 10*3/uL 0.83-4.51 [facility] Basophil percentageon 2022 Basophils/100 WBC (Bld) 0.2 % 0-1 [facility] Bilirubin [Mass/Vol] 0.50 mg/dL 0.20-1.00 [facility] Comment on above: For patients on eltr ombopag therapy, use of Dimension [place]elope TBIL is not recommended. Chloride [Moles/Vol] 106 mmol/L 98-107 [facility] Eosinophils/100 WBC (Bld) 0.8 % 0-5 [facility] Glucose [Mass/Vol] 81 mg/dL 74-106 [facility] Neutrophils (Bld) [#/Vol] 6.4 10*3/uL 2.0-7.7 [facility] Neutrophils/100 WBC (Bld) 75.4 % 47-70 [facility] Potassium [Moles/Vol] 4.0 mmol/L 3.5-5.1 [facility] Protein [Mass/Vol] 6.9 g/dL 6.4-8.2 [facility] Sodium [Moles/Vol] 141 mmol/L 136-145 [facility] WBC (Bld) [#/Vol] 8.5 10*3/uL 4.4-11.0 [facility] Blood erythrocytes count (nu mber/volume)on 08-12-2022 RBC (Bld) [#/Vol] 3.91 10*6/uL 4.2-5.4 [facility] Blood hemoglobin measurement (mass/volume)on 08-12-2022 Hemoglobin (Bld) [Mass/Vol] 13.0 g/dL 12.0-15.0 [facility] Blood lymphocytes/100 leukoc yteson 08-12-2022 Lymphocytes/100 WBC (Bld) 18.7 % 19-41 [facility] Blood monocytes/100 leukocyt eson 08-12-2022 Monocytes/100 WBC (Bld) 4.7 % 0-10 [facility] Blood platelet mean volumeon 08-12-2022 Platelet mean volume (Bld) [Entitic vol] 9.2 fL 6.2-12.0 [facility] Determination of erythrocyte mean corpuscular volume (MCV)on 08-12-2022 MCV (RBC) [Entitic vol] 102.0 fL 81-99 [facility] Hematocrit Auto (Bld) [Volum e fraction]on 08-12-2022 Hematocrit (Bld) [Volume fraction] 39.9 % 37-47 [facility] - Chemistry and C hemistry - challengeon 08-12-2022 ALP [Catalytic activity/Vol] 53 U/L 45-117 [facility] ALT [Catalytic activity/Vol] 30 U/L 13-56 [facility] CO2 [Moles/Vol] 27.0 mmol/L 21.0-32.0 [facility] Cobalamin (Vitamin B12) [Mass/Vol] 1493 pg/mL 211-911 [facility] Free T4 [Mass/Vol] 0.92 ng/dL 0.76-1.46 [facility] Globulin (S) [Mass/Vol] 3.3 g/dL 2.2-4.2 [facility] Urea nitrogen/Creatinine [Mass ratio] 18.6 mg/mg 10-20 [facility] - Hematology and Cell countson 08-12-2022 Erythrocyte distribution width (RBC) [Entitic vol] 46.1 fL 35.1-43.9 [facility] Erythrocyte distribution width (RBC) [Ratio] 12.3 % 11.6-14.6 [facility] Immature granulocytes/100 WBC (Bld) 0.200 % 0.0-0.9 [facility] Comment on above: IG% - Immature Granu locytes (promyelocytes, myelocytes and metamyelocytes) > 1% indicates that a LEFT SHIFT is Present. MCH (RBC) [Entitic mass] 33.2 pg 27.0-32.0 [facility] Nucleated RBC/100 WBC (Bld) [Ratio] 0 % 0-5 [facility] MCHC Auto (RBC) [Mass/Vol]on 08-12-2022 MCHC (RBC) [Mass/Vol] 32.6 g/dL 32-36 [facility] No Panel Informationon 08-12 Estimated GFR (MDRD) Amer 98 mL/min >60 [facility] Comment on above: GFR Calc Estimated GFR (MDRD) Non-Af Amer 81 mL/min >60 [facility] Comment on above: Non- GFR Calc Free Triiodothyronine (T3) pg/dL 2.0 pg/mL 2.18-3.98 [facility] Thyroid Stimulating Hormone (TSH) 0.09 uIU/mL 0.358-3.74 [facility] Vitamin D 25-Hydroxy 56.2 ng/mL [facility] Comment on above: Vitamin D 25(OH) Sta tus Range Deficiency <20 ng/mL (50nmol/L) Insufficiency 20 - 30 ng/mL (50 - 75 nmol/L) Sufficiency 30 - 100 ng/mL (75 - 250 nmol/L) Toxicity >100 ng/mL (>250 nmol/L) Platelets bldon 08-12-2022 Platelets (Bld) [#/Vol] 213 10*3/uL 150-450 [facility] Serum or plasma albumin bob urement (mass/volume)on 08-12-2022 Albumin [Mass/Vol] 3.6 g/dL 3.2-5.0 [facility] Serum or plasma albumin/glob ulin mass ratioon 08-12-2022 Albumin/Globulin [Mass ratio] 1.1 {ratio} 0.9-2.4 [facility] Serum or plasma calcium bob urement (mass/volume)on 08-12-2022 Calcium [Mass/Vol] 9.0 mg/dL 8.5-10.1 [facility] Serum or plasma creatinine m easurement (mass/volume)on 08-12-2022 Creatinine [Mass/Vol] 0.81 mg/dL 0.55-1.02 [facility] Comment on above: The validity of the calculated GFR & GFRAA in patients over 70 years has not been determined. Clinical correlation is essential. Serum or plasma ferritin hernesto surement (mass/volume)on 08-12-2022 Ferritin [Mass/Vol] 85 ng/mL 8-252 [facility] Serum or plasma urea nitroge n measurement (mass/volume)on 08-12-2022 Urea nitrogen [Mass/Vol] 15 mg/dL 7-18 [facility] Thin prep Papanicolaou smear with manual screeningon 08-12-2022 Thin prep Papanicolaou smear with manual screening 16 U/L 15-37 [facility] Thin prep Papanicolaou smear with manual screening 8 5-15 [facility] Whole blood hemoglobin A1c/t otal hemoglobin ratio (mass fraction)on 08-12-2022 HbA1c (Bld) [Mass fraction] 5.0 % 3.8-5.6 [facility] Comment on above: Normal < 5.7 % Predi abetic 5.7 - 6.4 % Diabetic >or= 6.5 % Please note range changes. Absolute lymphocyte counton 02-15-2022 Lymphocytes Auto (Unsp spec) [#/Vol] 1.95 10*3/uL 0.83-4.51 [facility] Work Phone: Basophil percentageon 2021 Basophils/100 WBC (Bld) 0.3 % 0-1 [facility] Work Phone: Bilirubin [Mass/Vol] 0.50 mg/dL 0.20-1.00 [facility] Work Phone: Comment on above: For patients on eltr ombopag therapy, use of Dimension [place] TBIL is not recommended. Chloride [Moles/Vol] 108 mmol/L 98-107 [facility] Work Phone: Eosinophils/100 WBC (Bld) 1.1 % 0-5 [facility] Work Phone: Glucose [Mass/Vol] 101 mg/dL 74-106 [facility] Work Phone: Comment on above: Fasting Glucose resu lt from 100 to 125 mg/dL suggests IMPAIRED HOMEOSTASIS per A.D.A. criteria. Neutrophils (Bld) [#/Vol] 3.7 10*3/uL 2.0-7.7 [facility] Work Phone: Neutrophils/100 WBC (Bld) 60.7 % 47-70 [facility] Work Phone: Potassium [Moles/Vol] 3.6 mmol/L 3.5-5.1 [facility] Work Phone: Protein [Mass/Vol] 6.8 g/dL 6.4-8.2 [facility] Work Phone: Sodium [Moles/Vol] 141 mmol/L 136-145 [facility] Work Phone: WBC (Bld) [#/Vol] 6.1 10*3/uL 4.4-11.0 [facility] Work Phone: Blood erythrocytes count (nu mber/volume)on 02-15-2022 RBC (Bld) [#/Vol] 3.75 10*6/uL 4.2-5.4 [facility] Work Phone: Blood hemoglobin measurement (mass/volume)on 02-15-2022 Hemoglobin (Bld) [Mass/Vol] 12.6 g/dL 12.0-15.0 [facility] Work Phone: Blood lymphocytes/100 leukoc yteson 02-15-2022 Lymphocytes/100 WBC (Bld) 31.9 % 19-41 [facility] Work Phone: Blood monocytes/100 leukocyt eson 02-15-2022 Monocytes/100 WBC (Bld) 5.7 % 0-10 [facility] Work Phone: Blood platelet mean volumeon 02-15-2022 Platelet mean volume (Bld) [Entitic vol] 8.7 fL 6.2-12.0 [facility] Work Phone: Determination of erythrocyte mean corpuscular volume (MCV)on 02-15-2022 MCV (RBC) [Entitic vol] 102.4 fL 81-99 [facility] Work Phone: Hematocrit Auto (Bld) [Volum e fraction]on 02-15-2022 Hematocrit (Bld) [Volume fraction] 38.4 % 37-47 [facility] Work Phone: Iron measurement (mass/mass) on 02-15-2022 Iron (Unsp spec) [Mass/Mass] 170 ug/dL 50-170 [facility] Work Phone: Laboratory - Chemistry and C hemistry - challengeon 02-15-2022 ALP [Catalytic activity/Vol] 49 U/L 45-117 [facility] Work Phone: ALT [Catalytic activity/Vol] 29 U/L 13-56 [facility] Work Phone: CO2 [Moles/Vol] 28.0 mmol/L 21.0-32.0 [facility] Work Phone: Cobalamin (Vitamin B12) [Mass/Vol] 1996 pg/mL 211-911 [facility] Work Phone: Free T4 [Mass/Vol] 0.92 ng/dL 0.76-1.46 [facility] Work Phone: Globulin (S) [Mass/Vol] 3.3 g/dL 2.2-4.2 [facility] Work Phone: Urea nitrogen/Creatinine [Mass ratio] 11.9 mg/mg 10-20 [facility] Work Phone: Laboratory - Hematology and Cell countson 02-15-2022 Erythrocyte distribution width (RBC) [Entitic vol] 46.9 fL 35.1-43.9 [facility] Work Phone: Erythrocyte distribution width (RBC) [Ratio] 12.4 % 11.6-14.6 [facility] Work Phone: Immature granulocytes/100 WBC (Bld) 0.300 % 0.0-0.9 [facility] Work Phone: Comment on above: IG% - Immature Granu locytes (promyelocytes, myelocytes and metamyelocytes) > 1% indicates that a LEFT SHIFT is Present. MCH (RBC) [Entitic mass] 33.6 pg 27.0-32.0 [facility] Work Phone: Nucleated RBC/100 WBC (Bld) [Ratio] 0 % 0-5 [facility] Work Phone: MCHC Auto (RBC) [Mass/Vol]on 02-15-2022 MCHC (RBC) [Mass/Vol] 32.8 g/dL 32-36 [facility] Work Phone: No Panel Informationon 02-15 Estimated GFR (MDRD) Amer 105 mL/min >60 [facility] Work Phone: Comment on above: GFR Calc Estimated GFR (MDRD) Non-Af Amer 87 mL/min >60 [facility] Work Phone: Comment on above: Non- GFR Calc Free Triiodothyronine (T3) pg/dL 2.3 pg/mL 2.18-3.98 [facility] Work Phone: Thyroid Stimulating Hormone (TSH) 0.58 uIU/mL 0.358-3.74 [facility] Work Phone: Total Iron Binding Capacity 282 ug/dL 250-450 [facility] Work Phone: Vitamin D 25-Hydroxy 59.4 ng/mL [facility] Work Phone: Comment on above: Vitamin D 25(OH) Sta tus Range Deficiency <20 ng/mL (50nmol/L) Insufficiency 20 - 30 ng/mL (50 - 75 nmol/L) Sufficiency 30 - 100 ng/mL (75 - 250 nmol/L) Toxicity >100 ng/mL (>250 nmol/L) Platelets bldon 02-15-2022 Platelets (Bld) [#/Vol] 206 10*3/uL 150-450 [facility] Work Phone: Serum or plasma albumin bob urement (mass/volume)on 02-15-2022 Albumin [Mass/Vol] 3.5 g/dL 3.2-5.0 [facility] Work Phone: Serum or plasma albumin/glob ulin mass ratioon 02-15-2022 Albumin/Globulin [Mass ratio] 1.1 {ratio} 0.9-2.4 [facility] Work Phone: Serum or plasma calcium bob urement (mass/volume)on 02-15-2022 Calcium [Mass/Vol] 9.0 mg/dL 8.5-10.1 [facility] Work Phone: Serum or plasma creatinine m easurement (mass/volume)on 02-15-2022 Creatinine [Mass/Vol] 0.76 mg/dL 0.55-1.02 [facility] Work Phone: Comment on above: The validity of the calculated GFR & GFRAA in patients over 70 years has not been determined. Clinical correlation is essential. Serum or plasma ferritin hernesto surement (mass/volume)on 02-15-2022 Ferritin [Mass/Vol] 69 ng/mL 8-252 [facility] Work Phone: Serum or plasma iron saturat ion measurement (mass fraction)on 02-15-2022 Iron saturation [Mass fraction] 60.3 % 15.0-55.0 [facility] Work Phone: Serum or plasma urea nitroge n measurement (mass/volume)on 02-15-2022 Urea nitrogen [Mass/Vol] 9 mg/dL 7-18 [facility] Work Phone: Thin prep Papanicolaou smear with manual screeningon 02-15-2022 Thin prep Papanicolaou smear with manual screening 14 U/L 15-37 [facility] Work Phone: Thin prep Papanicolaou smear with manual screening 5 5-15 [facility] Work Phone: Laboratory - Chemistry and C hemistry - challengeon 01-05-2022 Free T4 [Mass/Vol] 0.84 ng/dL 0.76-1.46 [facility] Work Phone: No Panel Informationon 01-05 Free Triiodothyronine (T3) pg/dL 2.1 pg/mL 2.18-3.98 [facility] Work Phone: Thyroid Stimulating Hormone (TSH) 1.42 uIU/mL 0.358-3.74 [facility] Work Phone: Laboratory - Chemistry and C hemistry - challengeon 11-26-2021 Free T4 [Mass/Vol] 0.88 ng/dL 0.76-1.46 [facility] Work Phone: No Panel Informationon 11-26 Free Triiodothyronine (T3) pg/dL 1.7 pg/mL 2.18-3.98 [facility] Work Phone: Thyroid Stimulating Hormone (TSH) 2.08 uIU/mL 0.358-3.74 [facility] Work Phone: Absolute lymphocyte counton 08-11-2021 Lymphocytes Auto (Unsp spec) [#/Vol] 1.86 10*3/uL 0.83-4.51 [facility] Work Phone: Basophil percentageon 2021 Basophils/100 WBC (Bld) 0.4 % 0-1 [facility] Work Phone: Bilirubin [Mass/Vol] 0.40 mg/dL 0.20-1.00 [facility] Work Phone: Comment on above: For patients on eltr ombopag therapy, use of Dimension [place] TBIL is not recommended. Chloride [Moles/Vol] 106 mmol/L 98-107 [facility] Work Phone: Eosinophils/100 WBC (Bld) 1.4 % 0-5 [facility] Work Phone: Glucose [Mass/Vol] 92 mg/dL 74-106 [facility] Work Phone: Neutrophils (Bld) [#/Vol] 4.5 10*3/uL 2.0-7.7 [facility] Work Phone: Neutrophils/100 WBC (Bld) 64.6 % 47-70 [facility] Work Phone: Potassium [Moles/Vol] 4.0 mmol/L 3.5-5.1 [facility] Work Phone: Protein [Mass/Vol] 7.0 g/dL 6.4-8.2 [facility] Work Phone: Sodium [Moles/Vol] 138 mmol/L 136-145 [facility] Work Phone: WBC (Bld) [#/Vol] 7.0 10*3/uL 4.4-11.0 [facility] Work Phone: Blood erythrocytes count (nu mber/volume)on 08-11-2021 RBC (Bld) [#/Vol] 3.88 10*6/uL 4.2-5.4 [facility] Work Phone: Blood hemoglobin measurement (mass/volume)on 08-11-2021 Hemoglobin (Bld) [Mass/Vol] 13.1 g/dL 12.0-15.0 [facility] Work Phone: Blood lymphocytes/100 leukoc yteson 08-11-2021 Lymphocytes/100 WBC (Bld) 26.6 % 19-41 [facility] Work Phone: Blood monocytes/100 leukocyt eson 08-11-2021 Monocytes/100 WBC (Bld) 6.6 % 0-10 [facility] Work Phone: Blood platelet mean volumeon 08-11-2021 Platelet mean volume (Bld) [Entitic vol] 8.5 fL 6.2-12.0 [facility] Work Phone: Determination of erythrocyte mean corpuscular volume (MCV)on 08-11-2021 MCV (RBC) [Entitic vol] 102.6 fL 81-99 [facility] Work Phone: Hematocrit Auto (Bld) [Volum e fraction]on 08-11-2021 Hematocrit (Bld) [Volume fraction] 39.8 % 37-47 [facility] Work Phone: Iron measurement (mass/mass) on 08-11-2021 Iron (Unsp spec) [Mass/Mass] 113 ug/dL 50-170 [facility] Work Phone: Laboratory - Chemistry and C hemistry - challengeon 08-11-2021 ALP [Catalytic activity/Vol] 54 U/L 45-117 [facility] Work Phone: ALT [Catalytic activity/Vol] 25 U/L 13-56 [facility] Work Phone: CO2 [Moles/Vol] 30.0 mmol/L 21.0-32.0 [facility] Work Phone: Cobalamin (Vitamin B12) [Mass/Vol] 1207 pg/mL 211-911 [facility] Work Phone: Free T4 [Mass/Vol] 0.86 ng/dL 0.76-1.46 [facility] Work Phone: Globulin (S) [Mass/Vol] 3.4 g/dL 2.2-4.2 [facility] Work Phone: Urea nitrogen/Creatinine [Mass ratio] 15.2 mg/mg 10-20 [facility] Work Phone: Laboratory - Hematology and Cell countson 08-11-2021 Erythrocyte distribution width (RBC) [Entitic vol] 47.6 fL 35.1-43.9 [facility] Work Phone: Erythrocyte distribution width (RBC) [Ratio] 12.6 % 11.6-14.6 [facility] Work Phone: Immature granulocytes/100 WBC (Bld) 0.400 % 0.0-0.9 [facility] Work Phone: Comment on above: IG% - Immature Granu locytes (promyelocytes, myelocytes and metamyelocytes) > 1% indicates that a LEFT SHIFT is Present. MCH (RBC) [Entitic mass] 33.8 pg 27.0-32.0 [facility] Work Phone: Nucleated RBC/100 WBC (Bld) [Ratio] 0 % 0-5 [facility] Work Phone: MCHC Auto (RBC) [Mass/Vol]on 08-11-2021 MCHC (RBC) [Mass/Vol] 32.9 g/dL 32-36 [facility] Work Phone: No Panel Informationon 08-11 Estimated GFR (MDRD) Amer 84 mL/min >60 [facility] Work Phone: Comment on above: GFR Calc Estimated GFR (MDRD) Non-Af Amer 70 mL/min >60 [facility] Work Phone: Comment on above: Non- GFR Calc Free Triiodothyronine (T3) pg/dL 3.4 pg/mL 2.18-3.98 [facility] Work Phone: Thyroid Stimulating Hormone (TSH) 1.61 uIU/mL 0.358-3.74 [facility] Work Phone: Total Iron Binding Capacity 286 ug/dL 250-450 [facility] Work Phone: Vitamin D 25-Hydroxy 97.4 ng/mL [facility] Work Phone: Comment on above: Vitamin D 25(OH) Sta tus Range Deficiency <20 ng/mL (50nmol/L) Insufficiency 20 - 30 ng/mL (50 - 75 nmol/L) Sufficiency 30 - 100 ng/mL (75 - 250 nmol/L) Toxicity >100 ng/mL (>250 nmol/L) Platelets bldon 08-11-2021 Platelets (Bld) [#/Vol] 232 10*3/uL 150-450 [facility] Work Phone: Serum or plasma albumin bob urement (mass/volume)on 08-11-2021 Albumin [Mass/Vol] 3.6 g/dL 3.2-5.0 [facility] Work Phone: Serum or plasma albumin/glob ulin mass ratioon 08-11-2021 Albumin/Globulin [Mass ratio] 1.1 {ratio} 0.9-2.4 [facility] Work Phone: Serum or plasma calcium bob urement (mass/volume)on 08-11-2021 Calcium [Mass/Vol] 9.1 mg/dL 8.5-10.1 [facility] Work Phone: Serum or plasma creatinine m easurement (mass/volume)on 08-11-2021 Creatinine [Mass/Vol] 0.92 mg/dL 0.55-1.02 [facility] Work Phone: Comment on above: The validity of the calculated GFR & GFRAA in patients over 70 years has not been determined. Clinical correlation is essential. Serum or plasma ferritin hernesto surement (mass/volume)on 08-11-2021 Ferritin [Mass/Vol] 74 ng/mL 8-252 [facility] Work Phone: Serum or plasma iron saturat ion measurement (mass fraction)on 08-11-2021 Iron saturation [Mass fraction] 39.5 % 15.0-55.0 [facility] Work Phone: Serum or plasma urea nitroge n measurement (mass/volume)on 08-11-2021 Urea nitrogen [Mass/Vol] 14 mg/dL 7-18 [facility] Work Phone: Thin prep Papanicolaou smear with manual screeningon 08-11-2021 Thin prep Papanicolaou smear with manual screening 14 U/L 15-37 [facility] Work Phone: Thin prep Papanicolaou smear with manual screening 2 5-15 [facility] Work Phone: Encounters Encounter Date Encounter Type Care Provider Facility Start: 09-17-2024 End: 09-17-2024 ambulatory [facility] Start: 09-17-2024 End: 09-17-2024 Encounter for general adult medical examination with abnormal findings [facility] Start: 09-10-2024 End: 09-10-2024 ambulatory PAMELAGAURI WHITT Work Phone: [facility] Work Phone: Start: 09-10-2024 End: 09-10-2024 Patient encounter procedure PAMELA WHITT Work Phone: -[facility] Start: 09-10-2024 End: 09-10-2024 ambulatory No Primary Care Physician Facility:[facility] Start: 02-21-2024 End: 02-21-2024 ambulatory Pallajay Hatch Facility:[facility] Start: 02-24-2023 End: 02-24-2023 ambulatory [facility] Work Phone: Start: 02-24-2023 End: 02-24-2023 Patient encounter procedure [facility] Start: 08-12-2022 End: 08-12-2022 ambulatory [facility] Work Phone: Start: 08-12-2022 End: 08-12-2022 Patient encounter procedure [facility] Start: 02-15-2022 End: 02-15-2022 ambulatory [facility] Work Phone: Start: 02-15-2022 End: 02-15-2022 Patient encounter procedure [facility] Start: 01-05-2022 End: 01-05-2022 ambulatory [facility] Work Phone: Start: 01-05-2022 End: 01-05-2022 Patient encounter procedure [facility] Start: 11-26-2021 End: 11-26-2021 Patient encounter procedure [facility] Start: 08-11-2021 Patient encounter procedure [facility] Procedures Date Procedure Procedure Detail Performing Clinician Start: 09-10-2024 Vitamin D, 25-hydrox y measurement PAMELA OLMEDOAASHISH Work Phone: Comment on above: Vitamin D StatusDefi ciency: <20 ng/mL (50nmol/L)Insufficiency: 20-30 ng/mL (50-75 nmol/L)Sufficiency: 30-100 ng/mL (75-250 nmol/L)Toxicity: >100 ng/mL (>250 nmol/L) Plan of Treatment Date Care Activity Detail Author Start: 09-10-2024 Procedure [facility] [facility] Payers Date Payer Category Payer Self-pay [id number] 2023 Unknown [id number] 1975 Unknown [id number] Self-pay SELF PAY INSURANCE [id number] Unknown [id number] Social History Date Type Detail Facility [facility] Work Phone: Start: 1975 Sex Assigned At Female [facility] Tobacco smoking stat us MOIS Unknown if ever smoked [facility] Work Phone: Evaluation note Note Date & Type Note Facility Evaluation note No assessment information availa ble [facility] Work Phone: Reason for referral (narrative) Note Date & Type Note Facility Reason for referral (narrative) No reason for referral information available [facility] Work Phone: Summary Purpose Family History No Family History Records FoundNo Family History Records Found Advance Directives No Advanced Directives Records FoundNo Advanced Directives Records Found Additional Source Comments Goals (unrecognized section and content) Goals may be documented in a n alternate sectionGoals may be documented in an alternate sectionGoals may be documented in an alternate sectionGoals may be documented in an alternate section Care Teams (unrecognized sec tion and content) Team Status: Active Member Role Status Dates No Primary Care Physician Family Provider Active No Primary Care Physician Primary Care Provider Active Team Status: Inactive Member Role Status Dates No Primary Care Physician Primary Care Provider Active BLOSSOM BRADLEY Attending Provider, Referring Provider A ctive Team Status: Inactive Member Role Status Dates PERI SANTIAGO Attending Provider, Referring Provid er Active No Primary Care Physician Primary Care Provider Active Team Status: Inactive Member Role Status Dates PERI SANTIAGO Attending Provider Active Star t: September 10, 2024 End: September 10, 2024 PERI SANTIAGO Referring Provider Active Star t: September 10, 2024 End: September 10, 2024 No Primary Care Physician Primary Care Provider Active Start: September 10, 2024 End: September 10, 2024 INFORMATION SOURCE (unrecogn ized section and content) DATE CREATED AUTHOR 10/05/[address] [facility] DATE CREATED AUTHOR AUTHOR'S LIO BONNER 10/23/2024 [facility] FOR RECORDS PERTAINING TO PATIENTS WHO ARE OR HAVE BEEN ENROLLED IN A CHEMICAL DEPENDENCY/SUBSTANCEABUSE PROGRAM, SOME INFORMATION MAY BE OMITTED. This clinical summary was aggregated from multiple sources. Caution should be exercised in using it in the provision of clinical care. This summary normalizes information from multiple sources, and as a consequence, information in this document may materially change the coding, format and clinical context of patient data. In addition, data may be omitted in some cases. CLINICAL DECISIONS SHOULD BE BASED ON THE PRIMARY CLINICAL RECORDS. [facility]. provides no warranty or guarantee of the accuracy or completeness of information in this document.
== END | disposition home or self-care (01) ==
LOC: PAVLAB 10:24
DX: K51.30 Ulcerative (chronic) rectosigmoiditis without complications (principal); K21.9 Gastro-esophageal reflux disease without esophagitis
CPT/HCPCS: 36415; 80053; 85025; 86140

== ENCOUNTER → 2024-11-19 | Outpatient (CLI) | payer BC, SELFPAY ==
[2024-11-21 08:32] LABS: Calprotectin, Stool <5 ug/g (0-120)
== END | disposition home or self-care (01) ==
LOC: LABSPEC 10:09 → PAVLAB 10:15
DX: K51.30 Ulcerative (chronic) rectosigmoiditis without complications (principal); K21.9 Gastro-esophageal reflux disease without esophagitis
CPT/HCPCS: 83993